=== PATIENT | male | born 1940 | race Two or more races ===

== ENCOUNTER 2018-02-05 16:12 | Inpatient (IN) | payer MEDICARE, MEDICAID ==
[2018-02-05] VITALS (7 sets, daily range): BP systolic 90–145; BP diastolic 51–94
[~2018-02-05] VITALS: Ht 177.8 cm; Wt 77.1 kg
[2018-02-05] MEDS ORDERED: Sodium Chloride 500ML 500 ML IV ONE (16:34)
[2018-02-05] MEDS ORDERED: ASPIRIN EC81 MG ORAL (17:08)
[2018-02-05] MEDS ORDERED: ATORVASTATIN CA40 MG ORAL (17:08)
[2018-02-05] MEDS ORDERED: NITROSTAT0.4 M2 SL (17:08)
[2018-02-05] MEDS ORDERED: BRILINTA90 MG PO (17:08)
[2018-02-05] MEDS ORDERED: METOPROLOL SUCC25 MG ORAL (17:08)
[2018-02-05 17:16] LABS: BASOPHILS % (AUTO) 1.4 % (0.0-2.0); EOSINOPHILS % (AUTO) 1.6 % (0.0-3.0); HEMATOCRIT 43.4 % (42.0-52.0); HEMOGLOBIN 15.4 G/DL (14.2-18.0); LYMPHOCYTES % (AUTO) 28.5 % (20.0-45.0); MEAN CORPUSCULAR VOLUME 97 FL (80-99); MONOCYTES % (AUTO) 10.2 % (1.0-10.0); NEUTROPHILS % (AUTO) 58.2 % (45.0-75.0); PLATELET COUNT 143 K/UL (150-450); RED BLOOD COUNT 4.46 M/UL (4.70-6.10); RED CELL DISTRIBUTION WIDTH 12.1 % (11.6-14.8); WHITE BLOOD COUNT 7.8 K/UL (4.8-10.8)
--- NOTE | 2018-02-05 17:45 | Emergency Room Report ---
History of Present Illness General Chief Complaint: Chest Pain Source: EMS Present Illness HPI 78-year-old male presents ED for evaluation. Patient coming from cardiology office with rapid heart rate and chest pain. Patient was scheduled for stress test and prior to stress test patient developed rapid heart rate. Heart rate in the 140s to 170s. And A. fib. Also complaining of chest pain, 8 out of 10, pressure, nonradiating. Patient was given 3 sprays of nitroglycerin and aspirin prior to arrival. Patient states chest pain has resolved. Denies shortness of breath. History of A. fib. Lump Machine Operator is Dr Pratik Gabriel. No other aggravating relieving factors. Denies any other associated symptoms Allergies: Coded Allergies: No Known Allergies (Unverified , 02/05/18) Patient History Past Medical History: HTN, [place] Past Surgical History: none Pertinent Family History: none Social History: Denies: smoking, alcohol use, drug use Immunizations: UTD Reviewed Nursing Documentation: PMH: Agreed; PSxH: Agreed Nursing Documentation-PMH Past Medical History: No History, Except For Hx Cardiac Problems: Yes - [place] Hx Hypertension: Yes Review of Systems All Other Systems: negative except mentioned in HPI Physical Exam Vital Signs Date Time Temp Pulse Resp B/P (MAP) Pulse Ox O2 Delivery O2 Flow Rate FiO2 02/05/18 16:02 123 20 114/80 98 Room Air 02/05/18 16:27 98.2 98.2 Sp02 EP Interpretation: reviewed, normal General Appearance: no apparent distress, alert, GCS 15, non-toxic Head: normocephalic, atraumatic Eyes: bilateral eye normal inspection, bilateral eye PERRL ENT: hearing grossly normal, normal pharynx, no angioedema, normal voice Neck: full range of motion, supple/symm/no masses Respiratory: chest non-tender, lungs clear, normal breath sounds, speaking full sentences Cardiovascular #1: regular rate, rhythm, no edema Cardiovascular #2: 2+ carotid (R), 2+ carotid (L), 2+ radial (R), 2+ radial (L) , 2+ dorsalis pedis (R), 2+ dorsalis pedis (L) Gastrointestinal: normal bowel sounds, non tender, soft, non-distended, no guarding, no rebound Rectal: deferred Genitourinary: normal inspection, no CVA tenderness Musculoskeletal: back normal, gait/station normal, normal range of motion, non- tender Neurologic: alert, oriented x3, responsive, motor strength/tone normal, sensory intact, speech normal Psychiatric: judgement/insight normal, memory normal, mood/affect normal, no suicidal/homicidal ideation Reflexes: 3+ bicep (R), 3+ bicep (L), 3+ tricep (R), 3+ tricep (L), 3+ knee (R) , 3+ knee (L) Skin: normal color, no rash, warm/dry, well hydrated Lymphatic: no adenopathy Medical Decision Making Diagnostic Impression: Primary Impression: ACS (acute coronary syndrome) Additional Impression: Atrial fibrillation with rapid ventricular response ER Course Hospital Course 78-year-old male presents ED with chest pain, rapid heart rate in the 140s just prior to the stress test today Differential diagnoses include: NH/unstable angina, contusion, muscle strain, PTX, rib fracture Clinical course Patient placed on stretcher. on cardiac rehabilitation program director. After initial history and physical I ordered labs, EKG, chest x-ray labs reviewed- no leukocytosis, hemoglobin/hematocrit stable, electrolytes okay , troponins negative EKGsinus tachycardia no acute ischemic changes interpreted by me Chest x-ray- cardiomegaly Rhythm strip per EMS shows A. fib with rapid ventricular response to the 160s and 170s. Symptoms responded to nitroglycerin 3 and aspirin. Given presentation and risk factors patient should be admitted Discussed case with integrity analyst Dr. Pratik Gabriel who sent the patient Case discussed with and he agreed to accept the patient to his service for further care and support I. I feel this is a highly complex case requiring extensive working including EKG/Rhythm strip, Xray/CT/US, Blood/urine lab work, repeat exams while in ED, and administration of strong opiates/narcotics for pain control, admission to hospital or close patient follow up. Diagnosis - ACS, afib with RVR admitted to telemetry in serious condition Labs Test 02/05/18 16:57 White Blood Count 7.8 K/UL (4.8-10.8) Red Blood Count 4.46 M/UL (4.70-6.10) Hemoglobin 15.4 G/DL (14.2-18.0) Hematocrit 43.4 % (42.0-52.0) Mean Corpuscular Volume 97 FL (80-99) Mean Corpuscular Hemoglobin 34.6 PG (27.0-31.0) Mean Corpuscular Hemoglobin Concent 35.6 G/DL (32.0-36.0) Red Cell Distribution Width 12.1 % (11.6-14.8) Platelet Count 143 K/UL (150-450) Mean Platelet Volume 9.1 FL (6.5-10.1) Neutrophils (%) (Auto) 58.2 % (45.0-75.0) Lymphocytes (%) (Auto) 28.5 % (20.0-45.0) Monocytes (%) (Auto) 10.2 % (1.0-10.0) Eosinophils (%) (Auto) 1.6 % (0.0-3.0) Basophils (%) (Auto) 1.4 % (0.0-2.0) Prothrombin Time 10.9 SEC (9.30-11.50) Prothromb Time International Ratio 1.0 (0.9-1.1) Activated Partial Thromboplast Time 27 SEC (23-33) Sodium Level 140 MMOL/L (136-145) Potassium Level 4.2 MMOL/L (3.5-5.1) Chloride Level 107 MMOL/L (98-107) Carbon Dioxide Level 21 MMOL/L (21-32) Anion Gap 12 mmol/L (5-15) Blood Urea Nitrogen 11 mg/dL (7-18) Creatinine 0.9 MG/DL (0.55-1.30) Estimat Glomerular Filtration Rate mL/min (>60) Glucose Level 105 MG/DL (74-106) Calcium Level 8.6 MG/DL (8.5-10.1) Total Bilirubin 0.8 MG/DL (0.2-1.0) Aspartate Amino Transf (AST/SGOT) 32 U/L (15-37) Alanine Aminotransferase (ALT/SGPT) 31 U/L (12-78) Alkaline Phosphatase 55 U/L (46-116) Total Creatine Kinase 212 U/L (26-308) Creatine Kinase MB 2.0 NG/ML (0.0-3.6) Creatine Kinase MB Relative Index 0.9 Troponin I 0.000 ng/mL (0.000-0.056) Pro-B-Type Natriuretic Peptide 171 pg/mL (0-125) Total Protein 6.5 G/DL (6.4-8.2) Albumin 3.4 G/DL (3.4-5.0) Globulin 3.1 g/dL Albumin/Globulin Ratio 1.1 (1.0-2.7) EKG Diagnostic Results Rate: tachycardiac Rhythm: NSR ST Segments: no acute changes ASA given to the pt in ED: No - given by ems Rhythm Strip Diag. Results EP Interpretation: yes Rhythm: NSR, no PVC's, no ectopy Chest X-Ray Diagnostic Results Chest X-Ray Diagnostic Results : Chest X-Ray Ordered: Yes # of Views/Limited/Complete: 1 View Indication: Chest Pain EP Interpretation: Yes Interpretation: no consolidation, no pneumothorax, other - cardiomegaly Impression: Other - cardiomegaly Electronically Signed by: Electronically signed by Jacob Benitez MD Last Vital Signs Date Time Temp Pulse Resp B/P (MAP) Pulse Ox O2 Delivery O2 Flow Rate FiO2 02/05/18 16:27 97 17 Room Air 02/05/18 16:27 98.2 114/80 98 98.2 Status: improved Disposition: ADMITTED INPATIENT Condition: Serious Jacob Benitez MD February 05, 2018 17:45
[2018-02-05 18:18] LABS: ALANINE AMINOTRANSFERASE 31 U/L (12-78); ALBUMIN 3.4 G/DL (3.4-5.0); ALBUMIN/GLOBULIN RATIO 1.1 (1.0-2.7); ALKALINE PHOSPHATASE 55 U/L (46-116); ANION GAP 12 mmol/L (5-15); ASPARTATE AMINO TRANSFERASE 32 U/L (15-37); BILIRUBIN,TOTAL 0.8 MG/DL (0.2-1.0); BLOOD UREA NITROGEN 11 mg/dL (7-18); CALCIUM 8.6 MG/DL (8.5-10.1); CARBON DIOXIDE 21 MMOL/L (21-32); CHLORIDE 107 MMOL/L (98-107); CREATINE KINASE 212 U/L (26-308); CREATININE 0.9 MG/DL (0.55-1.30); POTASSIUM 4.2 MMOL/L (3.5-5.1); SODIUM 140 MMOL/L (136-145)
[2018-02-05] MEDS ORDERED: Albuterol/Ipratropium 3ml neb HHN PRN (19:46)
[2018-02-05] MEDS ORDERED: Nitroglycerin Subl 0.4mg tab SL PRN (19:46)
[2018-02-05] MEDS ORDERED: Miralax 17gm pkt ORAL PRN (19:48)
[2018-02-05] MEDS ORDERED: dilTIAZem HCl 25mg/5ml Inj IV PRN (19:49)
[2018-02-05] MEDS ORDERED: Ketorolac 30mg Inj IV PRN (19:49)
[2018-02-05] MEDS ORDERED: Enalaprilat 2.5mg/2ml Inj IV PRN (19:49)
[2018-02-05] MEDS: Heparin 5000 units/ml inj SUBQ SCH (21:00)
[2018-02-05] MEDS: Atorvastatin 20mg tab ORAL SCH (22:14)
[2018-02-06] VITALS: BP 102/64
[2018-02-06 04:00] VITALS: BP 118/54
[2018-02-06 07:12] LABS: BASOPHILS % (AUTO) 1.3 % (0.0-2.0); EOSINOPHILS % (AUTO) 2.5 % (0.0-3.0); HEMOGLOBIN 15.7 G/DL (14.2-18.0); LYMPHOCYTES % (AUTO) 34.2 % (20.0-45.0); MEAN CORPUSCULAR VOLUME 97 FL (80-99); MONOCYTES % (AUTO) 10.8 % (1.0-10.0); NEUTROPHILS % (AUTO) 51.2 % (45.0-75.0); PLATELET COUNT 140 K/UL (150-450); RED BLOOD COUNT 4.43 M/UL (4.70-6.10); RED CELL DISTRIBUTION WIDTH 12.2 % (11.6-14.8); WHITE BLOOD COUNT 6.2 K/UL (4.8-10.8)
[2018-02-06 07:48] LABS: CHOLESTEROL 148 MG/DL (< 200); HDL CHOLESTEROL 43 MG/DL (40-60); TRIGLYCERIDES 79 MG/DL (30-150)
[2018-02-06 08:00] VITALS: BP 122/79
[2018-02-06] MEDS: Heparin 5000 units/ml inj SUBQ SCH ×2 (09:00→21:00)
[2018-02-06] MEDS ORDERED: Metoprolol Succinate XL 25mg tab ORAL SCH (09:00)
[2018-02-06] MEDS: Aspirin Baby 81mg ORAL SCH (09:40)
--- NOTE | 2018-02-06 11:18 | Diagnostic Imaging Report ---
Indication: Chest pain Technique: XRAY Chest 1v Comparison: None Findings: Limited exam with low lung volumes. Probable cardiomegaly and mild pulmonary vascular congestion. There is streaky opacities at the left base likely related to subsegmental atelectasis. No pleural effusion or pneumothorax. No definite acute osseous abnormality is seen. Impression: Question cardiomegaly and mild pulmonary vascular congestion, possibly exaggerated due to low lung volumes. Streaky left basilar opacities thought to be related to subsegmental atelectasis. Correlate clinically to exclude the possibility of developing infiltrate. Study obtained via the emergency department however patient admitted to the hospital at time of dictation of the final report.
[2018-02-06 12:00] VITALS: BP 156/87
--- NOTE | 2018-02-06 12:06 | Consultation ---
History of Present Illness General Date patient seen: February 06, 2018 Chief Complaint: Chest Pain Present Illness HPI 78-year-old gentleman with history of hypertension and coronary artery disease as well history of anxiety and cognitive impairment came in for medical stabilization. the pt is having episodes of agitation and anxiety Allergies: Coded Allergies: No Known Allergies (Unverified , 02/05/18) Medication History Scheduled Aspirin Ec* (Aspirin Ec*), 81 MG ORAL DAILY, (Reported) Atorvastatin Calcium* (Atorvastatin Calcium*), 40 MG ORAL BEDTIME, (Reported) Metoprolol Succinate* (Metoprolol Succinate*), 25 MG ORAL DAILY, (Reported) Ticagrelor* (Brilinta*), 90 MG PO BID, (Reported) Miscellaneous Medications Nitroglycerin (Nitrostat), 0.4 MG SL, (Reported) Patient History Limited by: medical condition History Provided By: Patient Healthcare decision maker Resuscitation status Full Code Advanced Directive on File Past Medical/Surgical History Past Medical/Surgical History: (1) ACS (acute coronary syndrome) (2) CAD (coronary artery disease) (3) Hypertension (4) Cerebral vascular disease Review of Systems Psychiatric: Reports: prior hx, anxiety, emotional problems Physical Exam General Appearance: no apparent distress, alert Neurologic: oriented x 3, responsive, depressed affect Last 24 Hour Vital Signs Date Time Temp Pulse Resp B/P (MAP) Pulse Ox O2 Delivery O2 Flow Rate FiO2 02/06/18 09:40 69 122/79 02/06/18 08:00 97.1 69 20 122/79 98 Room Air 97.1 02/06/18 04:00 98.1 67 20 118/54 96 Room Air 98.1 02/06/18 04:00 65 02/06/18 00:00 97.0 68 20 102/64 95 Room Air 97.0 02/06/18 00:00 66 02/05/18 20:40 98.0 71 20 117/71 96 Room Air 98.0 02/05/18 20:40 78 02/05/18 20:38 97.7 74 20 144/88 96 Room Air 97.7 02/05/18 20:20 97.7 72 20 145/94 96 Room Air 97.7 02/05/18 20:00 97.7 72 20 145/94 96 Room Air 97.7 02/05/18 19:17 97.7 72 20 145/94 96 Room Air 97.7 02/05/18 18:33 98.4 80 26 90/51 96 Room Air 98.4 02/05/18 18:31 98.6 70 24 133/87 97 Room Air 98.6 02/05/18 16:27 97 17 Room Air 02/05/18 16:27 98.2 97 20 114/80 98 Room Air 98.2 02/05/18 16:02 123 20 114/80 98 Room Air Intake and Output 02/05/18 02/06/18 19:00 07:00 Intake Total 100 ml Output Total 0 ml Balance 0 ml 100 ml Intake Oral 100 ml Output Urine Total 0 ml # Voids 2 Laboratory Tests Test 02/05/18 16:57 02/05/18 20:30 02/06/18 06:05 White Blood Count 7.8 K/UL (4.8-10.8) 6.2 K/UL (4.8-10.8) Red Blood Count 4.46 M/UL (4.70-6.10) L 4.43 M/UL (4.70-6.10) L Hemoglobin 15.4 G/DL (14.2-18.0) 15.7 G/DL (14.2-18.0) Hematocrit 43.4 % (42.0-52.0) 43.0 % (42.0-52.0) Mean Corpuscular Volume 97 FL (80-99) 97 FL (80-99) Mean Corpuscular Hemoglobin 34.6 PG (27.0-31.0) H 35.4 PG (27.0-31.0) H Mean Corpuscular Hemoglobin Concent 35.6 G/DL (32.0-36.0) 36.5 G/DL (32.0-36.0) H Red Cell Distribution Width 12.1 % (11.6-14.8) 12.2 % (11.6-14.8) Platelet Count 143 K/UL (150-450) L 140 K/UL (150-450) L Mean Platelet Volume 9.1 FL (6.5-10.1) 9.4 FL (6.5-10.1) Neutrophils (%) (Auto) 58.2 % (45.0-75.0) 51.2 % (45.0-75.0) Lymphocytes (%) (Auto) 28.5 % (20.0-45.0) 34.2 % (20.0-45.0) Monocytes (%) (Auto) 10.2 % (1.0-10.0) H 10.8 % (1.0-10.0) H Eosinophils (%) (Auto) 1.6 % (0.0-3.0) 2.5 % (0.0-3.0) Basophils (%) (Auto) 1.4 % (0.0-2.0) 1.3 % (0.0-2.0) Prothrombin Time 10.9 SEC (9.30-11.50) 10.9 SEC (9.30-11.50) Prothromb Time International Ratio 1.0 (0.9-1.1) 1.0 (0.9-1.1) Activated Partial Thromboplast Time 27 SEC (23-33) 28 SEC (23-33) Sodium Level 140 MMOL/L (136-145) Potassium Level 4.2 MMOL/L (3.5-5.1) Chloride Level 107 MMOL/L (98-107) Carbon Dioxide Level 21 MMOL/L (21-32) Anion Gap 12 mmol/L (5-15) Blood Urea Nitrogen 11 mg/dL (7-18) Creatinine 0.9 MG/DL (0.55-1.30) Estimat Glomerular Filtration Rate mL/min (>60) Glucose Level 105 MG/DL (74-106) Calcium Level 8.6 MG/DL (8.5-10.1) Total Bilirubin 0.8 MG/DL (0.2-1.0) Aspartate Amino Transf (AST/SGOT) 32 U/L (15-37) Alanine Aminotransferase (ALT/SGPT) 31 U/L (12-78) Alkaline Phosphatase 55 U/L (46-116) Total Creatine Kinase 212 U/L (26-308) Creatine Kinase MB 2.0 NG/ML (0.0-3.6) Creatine Kinase MB Relative Index 0.9 Troponin I 0.000 ng/mL (0.000-0.056) 0.000 ng/mL (0.000-0.056) 0.000 ng/mL (0.000-0.056) Pro-B-Type Natriuretic Peptide 171 pg/mL (0-125) H Total Protein 6.5 G/DL (6.4-8.2) Albumin 3.4 G/DL (3.4-5.0) Globulin 3.1 g/dL Albumin/Globulin Ratio 1.1 (1.0-2.7) C-Reactive Protein, Quantitative < 0.4 mg/dL (0.00-0.90) Triglycerides Level 79 MG/DL (30-150) Cholesterol Level 148 MG/DL (< 200) LDL Cholesterol 110 mg/dL (<100) H HDL Cholesterol 43 MG/DL (40-60) Cholesterol/HDL Ratio 3.4 (3.3-4.4) Thyroid Stimulating Hormone (TSH) 3.333 uiU/mL (0.358-3.740) Height (Feet): 5 Height (Inches): 10.00 Weight (Pounds): 170 Medications Current Medications Medications (Trade) Dose Ordered Sig/Katie Route PRN Reason Start Time Stop Time Status Last Admin Dose Admin Acetaminophen (Tylenol) 650 mg Q4H PRN ORAL FEVER (>100.3) 02/05/18 19:47 03/07/18 19:46 Albuterol/ Ipratropium (Albuterol/ Ipratropium) 3 ml EVERY 4 HOURS PRN HHN Shortness of Breath 02/05/18 19:46 02/10/18 19:45 Aspirin (ASA) 162 mg DAILY ORAL 02/06/18 09:00 03/08/18 08:59 02/06/18 09:40 Atorvastatin Calcium (Lipitor) 40 mg BEDTIME ORAL 02/05/18 21:00 03/07/18 20:59 02/05/18 22:14 Diltiazem HCl (Cardizem) 10 mg EVERY HOUR PRN IV heart rate more than 120, 02/05/18 19:49 03/07/18 19:48 Enalaprilat (Vasotec) 2.5 mg EVERY 6 HOURS PRN IV sbp more than 160 02/05/18 19:49 03/07/18 19:48 Heparin Sodium (Porcine) (Heparin 5000 units/ml) 5,000 units EVERY 12 HOURS SUBQ 02/05/18 21:00 03/07/18 20:59 Ketorolac Tromethamine (Toradol 30mg) 30 mg Q6HR PRN IV moderate pain ( 4-6) 02/05/18 19:49 02/10/18 19:48 Metoprolol Succinate (Toprol XL) 25 mg DAILY ORAL 02/06/18 09:00 03/08/18 08:59 02/06/18 09:40 Nitroglycerin (Ntg) 0.4 mg STAT PRN SL Prn Chest Pain 02/05/18 19:46 03/07/18 19:45 Ondansetron HCl (Zofran) 4 mg Q6H PRN IVP Nausea & Vomiting 02/05/18 19:48 03/07/18 19:47 Polyethylene Glycol (Miralax) 17 gm DAILYPRN PRN ORAL Constipation 02/05/18 19:48 03/07/18 19:47 Temazepam (Restoril) 15 mg HSPRN PRN ORAL Insomnia 02/05/18 21:00 02/12/18 20:59 Assessment/Plan Status: stable, progressing Assessment/Plan Anxiety d/o cognitive impairment Yasmani Flaherty M.D. February 06, 2018 12:06
[2018-02-06] MEDS ORDERED: LORazepam 1mg tab ORAL PRN (12:15)
--- NOTE | 2018-02-06 13:03 | Consultation ---
History of Present Illness General Date patient seen: February 06, 2018 Chief Complaint: Chest Pain Referring physician: Dr. Sanchez Present Illness HPI 78-year-old male with PMHx of HTN, CAD presents ED for evaluation of rapid heart rate and chest pain. Patient was scheduled for stress test and prior to stress test patient developed rapid heart rate. Heart rate in the 140s to 170s. And A. fib. Also complaining of chest pain, 8 out of 10, pressure, nonradiating. Patient was given 3 sprays of nitroglycerin and aspirin prior to arrival. Patient states chest pain has resolved. His heart rate on arrival to ER was 127, he converted to sinus in ER. He is admitted to telemetry to rule out ACS. Allergies: Coded Allergies: No Known Allergies (Unverified , 02/05/18) Medication History Scheduled Aspirin Ec* (Aspirin Ec*), 81 MG ORAL DAILY, (Reported) Atorvastatin Calcium* (Atorvastatin Calcium*), 40 MG ORAL BEDTIME, (Reported) Metoprolol Succinate* (Metoprolol Succinate*), 25 MG ORAL DAILY, (Reported) Ticagrelor* (Brilinta*), 90 MG PO BID, (Reported) Miscellaneous Medications Nitroglycerin (Nitrostat), 0.4 MG SL, (Reported) Patient History Healthcare decision maker N Resuscitation status Full Code Advanced Directive on File Past Medical/Surgical History Past Medical/Surgical History: (1) CAD (coronary artery disease) (2) Hypertension Review of Systems All Other Systems: negative except mentioned in HPI Physical Exam General Appearance: WD/WN Lines, tubes and drains: peripheral HEENT: normocephalic, atraumatic Neck: non-tender, normal alignment Respiratory/Chest: chest wall non-tender, lungs clear Breasts: no masses Cardiovascular/Chest: normal peripheral pulses Abdomen: normal bowel sounds, non tender Genitourinary/Rectal: normal genital exam Extremities: normal range of motion Skin Exam: normal pigmentation Neurologic: 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 normal Last 24 Hour Vital Signs Date Time Temp Pulse Resp B/P (MAP) Pulse Ox O2 Delivery O2 Flow Rate FiO2 02/06/18 09:40 69 122/79 02/06/18 09:00 78 02/06/18 08:00 97.1 69 20 122/79 98 Room Air 97.1 02/06/18 04:00 98.1 67 20 118/54 96 Room Air 98.1 02/06/18 04:00 65 02/06/18 00:00 97.0 68 20 102/64 95 Room Air 97.0 02/06/18 00:00 66 02/05/18 20:40 98.0 71 20 117/71 96 Room Air 98.0 02/05/18 20:40 78 02/05/18 20:38 97.7 74 20 144/88 96 Room Air 97.7 02/05/18 20:20 97.7 72 20 145/94 96 Room Air 97.7 02/05/18 20:00 97.7 72 20 145/94 96 Room Air 97.7 02/05/18 19:17 97.7 72 20 145/94 96 Room Air 97.7 02/05/18 18:33 98.4 80 26 90/51 96 Room Air 98.4 02/05/18 18:31 98.6 70 24 133/87 97 Room Air 98.6 02/05/18 16:27 97 17 Room Air 02/05/18 16:27 98.2 97 20 114/80 98 Room Air 98.2 02/05/18 16:02 123 20 114/80 98 Room Air Intake and Output 02/05/18 02/06/18 19:00 07:00 Intake Total 100 ml Output Total 0 ml Balance 0 ml 100 ml Intake Oral 100 ml Output Urine Total 0 ml # Voids 2 Laboratory Tests Test 02/05/18 16:57 02/05/18 20:30 02/06/18 06:05 White Blood Count 7.8 K/UL (4.8-10.8) 6.2 K/UL (4.8-10.8) Red Blood Count 4.46 M/UL (4.70-6.10) L 4.43 M/UL (4.70-6.10) L Hemoglobin 15.4 G/DL (14.2-18.0) 15.7 G/DL (14.2-18.0) Hematocrit 43.4 % (42.0-52.0) 43.0 % (42.0-52.0) Mean Corpuscular Volume 97 FL (80-99) 97 FL (80-99) Mean Corpuscular Hemoglobin 34.6 PG (27.0-31.0) H 35.4 PG (27.0-31.0) H Mean Corpuscular Hemoglobin Concent 35.6 G/DL (32.0-36.0) 36.5 G/DL (32.0-36.0) H Red Cell Distribution Width 12.1 % (11.6-14.8) 12.2 % (11.6-14.8) Platelet Count 143 K/UL (150-450) L 140 K/UL (150-450) L Mean Platelet Volume 9.1 FL (6.5-10.1) 9.4 FL (6.5-10.1) Neutrophils (%) (Auto) 58.2 % (45.0-75.0) 51.2 % (45.0-75.0) Lymphocytes (%) (Auto) 28.5 % (20.0-45.0) 34.2 % (20.0-45.0) Monocytes (%) (Auto) 10.2 % (1.0-10.0) H 10.8 % (1.0-10.0) H Eosinophils (%) (Auto) 1.6 % (0.0-3.0) 2.5 % (0.0-3.0) Basophils (%) (Auto) 1.4 % (0.0-2.0) 1.3 % (0.0-2.0) Prothrombin Time 10.9 SEC (9.30-11.50) 10.9 SEC (9.30-11.50) Prothromb Time International Ratio 1.0 (0.9-1.1) 1.0 (0.9-1.1) Activated Partial Thromboplast Time 27 SEC (23-33) 28 SEC (23-33) Sodium Level 140 MMOL/L (136-145) Potassium Level 4.2 MMOL/L (3.5-5.1) Chloride Level 107 MMOL/L (98-107) Carbon Dioxide Level 21 MMOL/L (21-32) Anion Gap 12 mmol/L (5-15) Blood Urea Nitrogen 11 mg/dL (7-18) Creatinine 0.9 MG/DL (0.55-1.30) Estimat Glomerular Filtration Rate mL/min (>60) Glucose Level 105 MG/DL (74-106) Calcium Level 8.6 MG/DL (8.5-10.1) Total Bilirubin 0.8 MG/DL (0.2-1.0) Aspartate Amino Transf (AST/SGOT) 32 U/L (15-37) Alanine Aminotransferase (ALT/SGPT) 31 U/L (12-78) Alkaline Phosphatase 55 U/L (46-116) Total Creatine Kinase 212 U/L (26-308) Creatine Kinase MB 2.0 NG/ML (0.0-3.6) Creatine Kinase MB Relative Index 0.9 Troponin I 0.000 ng/mL (0.000-0.056) 0.000 ng/mL (0.000-0.056) 0.000 ng/mL (0.000-0.056) Pro-B-Type Natriuretic Peptide 171 pg/mL (0-125) H Total Protein 6.5 G/DL (6.4-8.2) Albumin 3.4 G/DL (3.4-5.0) Globulin 3.1 g/dL Albumin/Globulin Ratio 1.1 (1.0-2.7) C-Reactive Protein, Quantitative < 0.4 mg/dL (0.00-0.90) Triglycerides Level 79 MG/DL (30-150) Cholesterol Level 148 MG/DL (< 200) LDL Cholesterol 110 mg/dL (<100) H HDL Cholesterol 43 MG/DL (40-60) Cholesterol/HDL Ratio 3.4 (3.3-4.4) Thyroid Stimulating Hormone (TSH) 3.333 uiU/mL (0.358-3.740) Height (Feet): 5 Height (Inches): 10.00 Weight (Pounds): 170 Medications Current Medications Medications (Trade) Dose Ordered Sig/Katie Route PRN Reason Start Time Stop Time Status Last Admin Dose Admin Acetaminophen (Tylenol) 650 mg Q4H PRN ORAL FEVER (>100.3) 02/05/18 19:47 03/07/18 19:46 Albuterol/ Ipratropium (Albuterol/ Ipratropium) 3 ml EVERY 4 HOURS PRN HHN Shortness of Breath 02/05/18 19:46 02/10/18 19:45 Aspirin (ASA) 162 mg DAILY ORAL 02/06/18 09:00 03/08/18 08:59 02/06/18 09:40 Atorvastatin Calcium (Lipitor) 40 mg BEDTIME ORAL 02/05/18 21:00 03/07/18 20:59 02/05/18 22:14 Diltiazem HCl (Cardizem) 10 mg EVERY HOUR PRN IV heart rate more than 120, 02/05/18 19:49 03/07/18 19:48 Enalaprilat (Vasotec) 2.5 mg EVERY 6 HOURS PRN IV sbp more than 160 02/05/18 19:49 03/07/18 19:48 Heparin Sodium (Porcine) (Heparin 5000 units/ml) 5,000 units EVERY 12 HOURS SUBQ 02/05/18 21:00 03/07/18 20:59 Ketorolac Tromethamine (Toradol 30mg) 30 mg Q6HR PRN IV moderate pain ( 4-6) 02/05/18 19:49 02/10/18 19:48 Lorazepam (Ativan) 1 mg Q6H PRN ORAL For Anxiety 02/06/18 12:15 02/13/18 12:14 Metoprolol Succinate (Toprol XL) 25 mg DAILY ORAL 02/06/18 09:00 03/08/18 08:59 02/06/18 09:40 Nitroglycerin (Ntg) 0.4 mg STAT PRN SL Prn Chest Pain 02/05/18 19:46 03/07/18 19:45 Ondansetron HCl (Zofran) 4 mg Q6H PRN IVP Nausea & Vomiting 02/05/18 19:48 03/07/18 19:47 Polyethylene Glycol (Miralax) 17 gm DAILYPRN PRN ORAL Constipation 02/05/18 19:48 03/07/18 19:47 Temazepam (Restoril) 15 mg HSPRN PRN ORAL Insomnia 02/05/18 21:00 02/12/18 20:59 Assessment/Plan Problem List: (1) Atrial fibrillation with rapid ventricular response ICD Codes: I48.91 - Unspecified atrial fibrillation SNOMED: 069142830524851 (2) ACS (acute coronary syndrome) ICD Codes: I24.9 - Acute ischemic heart disease, unspecified SNOMED: 162266994 (3) CAD (coronary artery disease) ICD Codes: I25.10 - Atherosclerotic heart disease of [place] coronary artery without angina pectoris SNOMED: 72943718 (4) Hypertension ICD Codes: I10 - Essential (primary) hypertension SNOMED: 13544498 Assessment/Plan telemetry monitoring serial ekg and troponin Echo cardiology evaluation symptomatic treatment watch BP Niranjan Noriega MD February 06, 2018 13:03
--- NOTE | 2018-02-06 14:30 | Cardiology Report ---
APPROVED REPORT EXAM: Two-dimensional and M-mode echocardiogram with Doppler and color Doppler. INDICATION LV function M-Mode DIMENSIONS IVSd1.4 (0.7-1.1cm)Left Atrium (MM)4.1 (1.6-4.0cm) LVDd4.3 (3.5-5.6cm)Aortic Root3.6 (2.0-3.7cm) PWd1.2 (0.7-1.1cm)Aortic Cusp Exc..2 (1.5-2.0cm) LVDs2.7 (2.5-4.0cm) PWs1.9 cm Normal left ventricular chamber size, systolic function and wall motion. Left ventricular ejection fraction estimated to be 60 %. Mild left ventricular hypertrophy. No evidence of pericardial effusion. All other cardiac chamber sizes are within normal limits. Focal aortic valve sclerosis with adequate cusp excursion. Thickened mitral valve leaflets with normal excursion. Mitral annulus and aortic root calcification. Pulmonic valve not well visualized. Normal tricuspid valve structure. IVC at normal size with physiologic collapse. A color flow and spectral Doppler study was performed and revealed: Mild aortic regurgitation. Mild mitral regurgitation. Mitral diastolic velocities suggest reduced left ventricular relaxation c/w mild LV diastolic dysfunction (Grade I ). Mild tricuspid regurgitation. Tricuspid systolic velocities suggests peak right ventricular systolic pressure of 56 mmHg, consistent with moderate pulmonary hypertension. Pulmonic regurgitation present.
--- NOTE | 2018-02-06 14:47 | History & Physical ---
History and Physical History & Physicial Daquan Monahan MD February 06, 2018 14:47
--- NOTE | 2018-02-06 14:53 | Cardiac Electrophysiology PN ---
Subjective Subjective [id number] Objective Last 24 Hour Vital Signs Date Time Temp Pulse Resp B/P (MAP) Pulse Ox O2 Delivery O2 Flow Rate FiO2 02/06/18 12:00 97.2 52 20 156/87 98 Room Air 97.2 02/06/18 12:00 57 02/06/18 09:40 69 122/79 02/06/18 09:00 78 02/06/18 08:00 97.1 69 20 122/79 98 Room Air 97.1 02/06/18 04:00 98.1 67 20 118/54 96 Room Air 98.1 02/06/18 04:00 65 02/06/18 00:00 97.0 68 20 102/64 95 Room Air 97.0 02/06/18 00:00 66 02/05/18 20:40 98.0 71 20 117/71 96 Room Air 98.0 02/05/18 20:40 78 02/05/18 20:38 97.7 74 20 144/88 96 Room Air 97.7 02/05/18 20:20 97.7 72 20 145/94 96 Room Air 97.7 02/05/18 20:00 97.7 72 20 145/94 96 Room Air 97.7 02/05/18 19:17 97.7 72 20 145/94 96 Room Air 97.7 02/05/18 18:33 98.4 80 26 90/51 96 Room Air 98.4 02/05/18 18:31 98.6 70 24 133/87 97 Room Air 98.6 02/05/18 16:27 97 17 Room Air 02/05/18 16:27 98.2 97 20 114/80 98 Room Air 98.2 02/05/18 16:02 123 20 114/80 98 Room Air Intake and Output 02/05/18 02/06/18 19:00 07:00 Intake Total 100 ml Output Total 0 ml Balance 0 ml 100 ml Intake Oral 100 ml Output Urine Total 0 ml # Voids 2 Laboratory Tests Test 02/05/18 16:57 02/05/18 20:30 02/06/18 06:05 White Blood Count 7.8 K/UL (4.8-10.8) 6.2 K/UL (4.8-10.8) Red Blood Count 4.46 M/UL (4.70-6.10) L 4.43 M/UL (4.70-6.10) L Hemoglobin 15.4 G/DL (14.2-18.0) 15.7 G/DL (14.2-18.0) Hematocrit 43.4 % (42.0-52.0) 43.0 % (42.0-52.0) Mean Corpuscular Volume 97 FL (80-99) 97 FL (80-99) Mean Corpuscular Hemoglobin 34.6 PG (27.0-31.0) H 35.4 PG (27.0-31.0) H Mean Corpuscular Hemoglobin Concent 35.6 G/DL (32.0-36.0) 36.5 G/DL (32.0-36.0) H Red Cell Distribution Width 12.1 % (11.6-14.8) 12.2 % (11.6-14.8) Platelet Count 143 K/UL (150-450) L 140 K/UL (150-450) L Mean Platelet Volume 9.1 FL (6.5-10.1) 9.4 FL (6.5-10.1) Neutrophils (%) (Auto) 58.2 % (45.0-75.0) 51.2 % (45.0-75.0) Lymphocytes (%) (Auto) 28.5 % (20.0-45.0) 34.2 % (20.0-45.0) Monocytes (%) (Auto) 10.2 % (1.0-10.0) H 10.8 % (1.0-10.0) H Eosinophils (%) (Auto) 1.6 % (0.0-3.0) 2.5 % (0.0-3.0) Basophils (%) (Auto) 1.4 % (0.0-2.0) 1.3 % (0.0-2.0) Prothrombin Time 10.9 SEC (9.30-11.50) 10.9 SEC (9.30-11.50) Prothromb Time International Ratio 1.0 (0.9-1.1) 1.0 (0.9-1.1) Activated Partial Thromboplast Time 27 SEC (23-33) 28 SEC (23-33) Sodium Level 140 MMOL/L (136-145) Potassium Level 4.2 MMOL/L (3.5-5.1) Chloride Level 107 MMOL/L (98-107) Carbon Dioxide Level 21 MMOL/L (21-32) Anion Gap 12 mmol/L (5-15) Blood Urea Nitrogen 11 mg/dL (7-18) Creatinine 0.9 MG/DL (0.55-1.30) Estimat Glomerular Filtration Rate mL/min (>60) Glucose Level 105 MG/DL (74-106) Calcium Level 8.6 MG/DL (8.5-10.1) Total Bilirubin 0.8 MG/DL (0.2-1.0) Aspartate Amino Transf (AST/SGOT) 32 U/L (15-37) Alanine Aminotransferase (ALT/SGPT) 31 U/L (12-78) Alkaline Phosphatase 55 U/L (46-116) Total Creatine Kinase 212 U/L (26-308) Creatine Kinase MB 2.0 NG/ML (0.0-3.6) Creatine Kinase MB Relative Index 0.9 Troponin I 0.000 ng/mL (0.000-0.056) 0.000 ng/mL (0.000-0.056) 0.000 ng/mL (0.000-0.056) Pro-B-Type Natriuretic Peptide 171 pg/mL (0-125) H Total Protein 6.5 G/DL (6.4-8.2) Albumin 3.4 G/DL (3.4-5.0) Globulin 3.1 g/dL Albumin/Globulin Ratio 1.1 (1.0-2.7) C-Reactive Protein, Quantitative < 0.4 mg/dL (0.00-0.90) Triglycerides Level 79 MG/DL (30-150) Cholesterol Level 148 MG/DL (< 200) LDL Cholesterol 110 mg/dL (<100) H HDL Cholesterol 43 MG/DL (40-60) Cholesterol/HDL Ratio 3.4 (3.3-4.4) Thyroid Stimulating Hormone (TSH) 3.333 uiU/mL (0.358-3.740) Royce Rapp MD February 06, 2018 14:53
[2018-02-06] MEDS ORDERED: Lexiscan 0.4mg/5ml syringe IV PRN (15:00)
[2018-02-06 16:00] VITALS: BP 109/67
[2018-02-06 20:00] VITALS: BP 114/70
[2018-02-06] MEDS: Atorvastatin 20mg tab ORAL SCH (21:06)
--- NOTE | 2018-02-06 22:00 | History and Physical Report ---
DATE OF ADMISSION: 02/05/2018 CHIEF COMPLAINT: Palpitation. HISTORY OF PRESENT ILLNESS: This is a 78-year-old gentleman with past medical history significant for coronary artery disease status post PTCA with angioplasty done about a year ago, history of CVA, hypertension, prior history right kidney surgery who was presented to the emergency room after it was noted to have a palpitation. The patient was scheduled for the stress test and was noted to have rapid heart rate in the 140 to 170 was noted to be EKG confirmed the patient has atrial fibrillation with rapid ventricular rate and subsequently, the stress test was deferred and the patient was transferred to the hospital. Shortly after initial evaluation in the emergency, the patient was noted to be in chest pain, pressure-like, nonradiating and the patient was given 3 sprays of nitroglycerin and aspirin. Prior to arrival to the emergency room, chest pain was resolved. Heart rate was in the emergency room upon arrival was 127 and it converted to sinus rhythm in the ER and shortly after initial evaluation in the emergency, the patient was admitted to the hospital with atrial fibrillation with rapid ventricular rate as well as chest pain, possible acute coronary syndrome. PAST MEDICAL HISTORY/PAST SURGICAL HISTORY: As above. History of hypertension, CVA, coronary artery disease with stent placement, history of right kidney surgery. MEDICATIONS: At home significant for aspirin, atorvastatin, metoprolol and Brilinta. ALLERGIES: No known drug allergies. SOCIAL HISTORY: No smoking, alcohol, or drugs. FAMILY HISTORY: Noncontributory. REVIEW OF SYSTEMS: Mostly as above. Denies any dysuria, frequency, or hematuria. Denies any hemoptysis or hematochezia. Denies any suicidal or homicidal ideation. The patient's chest pain has been resolved. Denies any loss of consciousness. Denies any double vision. Denies any pedal edema. PHYSICAL EXAMINATION: VITAL SIGNS: Temperature 97.1 degrees, pulse of 69, respirations 20, and blood pressure 122/79. GENERAL: The patient is awake, responsive, in no acute distress. HEAD AND NECK: Pupils are reactive to light. Extraocular movements are intact. Neck was supple. No JVD. LUNGS: With no wheeze, rhonchi or rales. HEART: S1 and S2. Regular rhythm. No gallops. ABDOMEN: Soft, nondistended, and nontender. Positive bowel sounds. EXTREMITIES: No cyanosis, clubbing, or edema. NEUROLOGIC: Cranial nerves II through XII are grossly intact. Motor strength is 5/5 in all extremity. Gait is intact. LABORATORY AND DIAGNOSTIC DATA: On admission, PT of 10, INR 1.0 and PTT of 27. Sodium 140, potassium 4.2, chloride 107, bicarboante 21, BUN 11, creatinine 0.9, glucose is 105. AST of 32 and ALT of 31. First and second troponin 0.00. ProBNP of 171. Cholesterol is 148. WBC of 7.8, hemoglobin 15, hematocrit 43, and platelet is 143. The patient had a chest x-ray shows that the ? cardiomegaly with mild pulmonary vascular congestion, possibility exaggeration due to the low lung volume. left basal opacities thought to be related to subsegmental atelectasis. EKG upon arrival is significant for atrial fibrillation with rapid ventricular rate, ventricular rate of 168 and repeat EKG was confirmed to be sinus tachy with ventricular rate of 117. No ST elevation or T-wave inversion was identified. Echocardiogram was noted to be ejection fraction of 60% with a mild left ventricular hypertrophy. No evidence of the pericardial effusion, normal tricuspid valve structure and mild tricuspid regurgitation. ASSESSMENT: 1. Chest pain, possible acute coronary syndrome. 2. History of coronary artery disease with status post PTCA with stent placement. 3. Atrial fibrillation with rapid ventricular rate, paroxysmal. 4. History of CVA. 5. Hypertension. 6. History of right kidney surgery. PLAN: Admit the patient to telemetry. We will follow up with Dr. Noriega, Pulmonary Critical Care and Dr. Royce Rapp from Cardiology. Monitor laboratory closely. Discussed with the family member at the bedside who has been helping with Khmer translation because of language barrier. Code Status Full Code. DVT prophylaxis. Heparin subcutaneous. Resume home medication and consider discharge home in a day or two. Daquan Monahan M.D. DR: INDIRA JOB#: [id number] CC:
--- NOTE | 2018-02-06 22:30 | Consultation ---
DATE OF CONSULTATION: 02/06/2018 CARDIOLOGY CONSULTATION CONSULTING PHYSICIAN: Royce Rapp M.D. REFERRING PHYSICIAN: Daquan Monahan M.D. REASON FOR CONSULTATION: Atrial fibrillation with rapid ventricular response. HISTORY OF PRESENT ILLNESS: The patient is a 78-year-old gentleman with history of hypertension and coronary artery disease, who was scheduled for a stress test, but started to develop atrial fibrillation with rapid ventricular response, heart rate 170s. The patient was sent to the emergency room after three sprays of nitroglycerin and aspirin. The patient's heart rate was 130s in the emergency room and then converted spontaneously to sinus rhythm. The patient was admitted and Cardiology consultation was obtained for further evaluation and management. REVIEW OF SYSTEMS: Review of Systems was performed and was negative other than what was mentioned in the history of present illness. PAST MEDICAL HISTORY: 1. Hypertension. 2. Coronary artery disease, 01:02__ which is not clear. FAMILY HISTORY: Noncontributory. SOCIAL HISTORY: He lives at home. Does not smoke or drink alcohol. MEDICATIONS: At home include aspirin 81 mg, Brilinta 90 mg b.i.d., Lipitor 40 mg daily, and Toprol-XL 25 mg daily. PHYSICAL EXAMINATION: VITAL SIGNS: Show blood pressure of 155/87, pulse is 62, respirations 20, and temperature 97.2. HEAD AND NECK: No JVD. LUNGS: Clear. CARDIOVASCULAR: Regular S1 and S2 with no gallop or murmur. ABDOMEN: Soft. EXTREMITIES: No pitting edema. LABORATORY AND DIAGNOSTIC DATA: Labs show white count 6.2, hemoglobin 15.7, hematocrit of 43, and platelet count of 140. Sodium of 140, potassium is 4.2, BUN of 11, creatinine 0.9, and glucose of 105. Troponin negative x3. BNP is 171. ASSESSMENT AND PLAN: 1. Atrial fibrillation with rapid ventricular response of new onset. Increase Toprol to 25 mg b.i.d. Since this is newly diagnosed, we will hold off on full anticoagulation, but continue aspirin and Brilinta. If it is not available, we will switch it to Plavix. Echocardiogram has already been ordered, which showed ejection fraction of 60%. If the stress is negative, we will start the patient on flecainide. 2. Hypertension. Increase Toprol-XL to 50 mg daily. 3. History of coronary artery disease without any chest pain currently. Thank you very much, Dr. Monahan, for allowing me to participate in the care of this patient. Please do not hesitate to contact me for any questions regarding my evaluation. Royce Rapp M.D. DR: Glory JOB#: [id number] CC:
[2018-02-07] VITALS: BP 118/61
[2018-02-07 08:00] VITALS: BP 131/72
[2018-02-07] MEDS: Aspirin Baby 81mg ORAL SCH (10:18)
[2018-02-07] MEDS: Metoprolol Succinate XL 50mg tab ORAL SCH (10:19)
[2018-02-07] MEDS: Heparin 5000 units/ml inj SUBQ SCH ×2 (10:20→20:51)
--- NOTE | 2018-02-07 11:00 | Pulmonology Progress Note ---
Assessment/Plan Assessment/Plan ASSESSMENT atrial fibrillation with rapid ventricular response chest pain, r/o acute coronary syndrome HTN CAD with hx of [place] Hypercholesteremia Moderate pulmonary HTN Hx of CVA Hx of R kidney surgery PLAN OF CARE Telemetry floor Serial troponin 3 negative, ECG no acute ischemic changes, ruled out for acute [place] cardio follows Lipid panel with LDL 110, continue statin in SR, on BB, dose increased as per cardio no a/coagulation given new onset - as per cardio continue ASA and Brilinta ( not available, therefore in hospital Plavix) Aspirin , Plavix ,beta parminder, statin, nitroglycerin ECHO with ejection fraction of 60% and right ventricular systolic pressure 56 consistent with a moderate pulmonary hypertension stress test pending Supplemental oxygen as needed to keep pulse oximetry above 92% pulmonary toilet as needed DVT prophylaxis case discussed and evaluated by supervising physician Subjective Allergies: Coded Allergies: No Known Allergies (Unverified , 02/05/18) Subjective denies chest pain currently in SR stress test pending Objective Last 24 Hour Vital Signs Date Time Temp Pulse Resp B/P (MAP) Pulse Ox O2 Delivery O2 Flow Rate FiO2 02/07/18 10:19 72 131/72 02/07/18 08:00 97.5 72 20 131/72 96 Room Air 97.5 02/07/18 04:00 48 02/07/18 00:00 60 02/07/18 00:00 97.3 57 20 118/61 96 Room Air 97.3 02/06/18 20:00 72 02/06/18 20:00 97.3 55 20 114/70 96 Room Air 97.3 02/06/18 16:00 97.7 50 20 109/67 95 Room Air 97.7 02/06/18 16:00 52 02/06/18 12:00 97.2 52 20 156/87 98 Room Air 97.2 02/06/18 12:00 57 Intake and Output 02/06/18 02/07/18 19:00 07:00 Intake Total 550 ml Balance 550 ml Intake Oral 550 ml # Voids 3 General Appearance: no acute distress HEENT: normocephalic, atraumatic, anicteric Respiratory/Chest: chest wall non-tender, lungs clear, no respiratory distress Cardiovascular: normal rate, regular rhythm - SR on tele Abdomen: normal bowel sounds, soft, non tender Extremities: no edema, pedal pulses normal Neurologic/Psychiatric: alert, responsive Musculoskeletal: normal muscle bulk Current Medications Medications (Trade) Dose Ordered Sig/Katie Route PRN Reason Start Time Stop Time Status Last Admin Dose Admin Acetaminophen (Tylenol) 650 mg Q4H PRN ORAL FEVER (>100.3) 02/05/18 19:47 03/07/18 19:46 Albuterol/ Ipratropium (Albuterol/ Ipratropium) 3 ml EVERY 4 HOURS PRN HHN Shortness of Breath 02/05/18 19:46 02/10/18 19:45 Aspirin (ASA) 162 mg DAILY ORAL 02/06/18 09:00 03/08/18 08:59 02/07/18 10:18 Atorvastatin Calcium (Lipitor) 40 mg BEDTIME ORAL 02/05/18 21:00 03/07/18 20:59 02/06/18 21:06 Clopidogrel Bisulfate (Plavix) 75 mg DAILY ORAL 02/07/18 09:00 03/09/18 08:59 02/07/18 10:18 Diltiazem HCl (Cardizem) 10 mg EVERY HOUR PRN IV heart rate more than 120, 02/05/18 19:49 03/07/18 19:48 Enalaprilat (Vasotec) 2.5 mg EVERY 6 HOURS PRN IV sbp more than 160 02/05/18 19:49 03/07/18 19:48 Heparin Sodium (Porcine) (Heparin 5000 units/ml) 5,000 units EVERY 12 HOURS SUBQ 02/05/18 21:00 03/07/18 20:59 02/07/18 10:20 Ketorolac Tromethamine (Toradol 30mg) 30 mg Q6HR PRN IV moderate pain ( 4-6) 02/05/18 19:49 02/10/18 19:48 Lorazepam (Ativan) 1 mg Q6H PRN ORAL For Anxiety 02/06/18 12:15 02/13/18 12:14 Metoprolol Succinate (Toprol XL) 50 mg DAILY ORAL 02/07/18 09:00 03/08/18 08:59 02/07/18 10:19 Nitroglycerin (Ntg) 0.4 mg STAT PRN SL Prn Chest Pain 02/05/18 19:46 03/07/18 19:45 Ondansetron HCl (Zofran) 4 mg Q6H PRN IVP Nausea & Vomiting 02/05/18 19:48 03/07/18 19:47 Polyethylene Glycol (Miralax) 17 gm DAILYPRN PRN ORAL Constipation 02/05/18 19:48 03/07/18 19:47 Regadenoson (Lexiscan) 0.4 mg ONCE PRN IV STRESS TEST 02/06/18 15:00 02/07/18 23:59 Temazepam (Restoril) 15 mg HSPRN PRN ORAL Insomnia 02/05/18 21:00 02/12/18 20:59 [place] ([facility])Janay NP February 07, 2018 11:00
[2018-02-07 12:00] VITALS: BP 126/89
--- NOTE | 2018-02-07 12:43 | Internal Med Progress Note ---
Subjective Date of Service: February 07, 2018 Physician Name Richard Rincon Attending Physician Daquan Monahan MD Current Medications Medications (Trade) Dose Ordered Sig/Katie Route PRN Reason Start Time Stop Time Status Last Admin Dose Admin Acetaminophen (Tylenol) 650 mg Q4H PRN ORAL FEVER (>100.3) 02/05/18 19:47 03/07/18 19:46 Albuterol/ Ipratropium (Albuterol/ Ipratropium) 3 ml EVERY 4 HOURS PRN HHN Shortness of Breath 02/05/18 19:46 02/10/18 19:45 Aspirin (ASA) 162 mg DAILY ORAL 02/06/18 09:00 03/08/18 08:59 02/07/18 10:18 Atorvastatin Calcium (Lipitor) 40 mg BEDTIME ORAL 02/05/18 21:00 03/07/18 20:59 02/06/18 21:06 Clopidogrel Bisulfate (Plavix) 75 mg DAILY ORAL 02/07/18 09:00 03/09/18 08:59 02/07/18 10:18 Diltiazem HCl (Cardizem) 10 mg EVERY HOUR PRN IV heart rate more than 120, 02/05/18 19:49 03/07/18 19:48 Enalaprilat (Vasotec) 2.5 mg EVERY 6 HOURS PRN IV sbp more than 160 02/05/18 19:49 03/07/18 19:48 Heparin Sodium (Porcine) (Heparin 5000 units/ml) 5,000 units EVERY 12 HOURS SUBQ 02/05/18 21:00 03/07/18 20:59 02/07/18 10:20 Ketorolac Tromethamine (Toradol 30mg) 30 mg Q6HR PRN IV moderate pain ( 4-6) 02/05/18 19:49 02/10/18 19:48 Lorazepam (Ativan) 1 mg Q6H PRN ORAL For Anxiety 02/06/18 12:15 02/13/18 12:14 Metoprolol Succinate (Toprol XL) 50 mg DAILY ORAL 02/07/18 09:00 03/08/18 08:59 02/07/18 10:19 Nitroglycerin (Ntg) 0.4 mg STAT PRN SL Prn Chest Pain 02/05/18 19:46 03/07/18 19:45 Ondansetron HCl (Zofran) 4 mg Q6H PRN IVP Nausea & Vomiting 02/05/18 19:48 03/07/18 19:47 Polyethylene Glycol (Miralax) 17 gm DAILYPRN PRN ORAL Constipation 02/05/18 19:48 03/07/18 19:47 Regadenoson (Lexiscan) 0.4 mg ONCE PRN IV STRESS TEST 02/06/18 15:00 02/07/18 23:59 Temazepam (Restoril) 15 mg HSPRN PRN ORAL Insomnia 02/05/18 21:00 02/12/18 20:59 Allergies: Coded Allergies: No Known Allergies (Unverified , 02/05/18) ROS Limited/Unobtainable: No Constitutional: Reports: no symptoms HEENT: Reports: no symptoms Cardiovascular: Reports: irregular heart rate, palpitations Respiratory: Reports: no symptoms Gastrointestinal/Abdominal: Reports: no symptoms Genitourinary: Reports: no symptoms Neurologic/Psychiatric: Reports: no symptoms Subjective 78 YO M admitted with chest pain. Now atrial fibrillation with rapid ventricular rate. Cover for [facility]-DR Monahan. Objective Last Vital Signs Date Time Temp Pulse Resp B/P (MAP) Pulse Ox O2 Delivery O2 Flow Rate FiO2 02/07/18 10:19 72 131/72 02/07/18 08:00 97.5 20 96 Room Air 97.5 General Appearance: WD/WN, no apparent distress, alert EENT: PERRL/EOMI, normal ENT inspection, TMs normal Neck: non-tender, normal alignment, supple Cardiovascular: normal peripheral pulses, normal rate, regular rhythm, no gallop/murmur Respiratory/Chest: chest wall non-tender, lungs clear, normal breath sounds, no respiratory distress, no accessory muscle use Abdomen: normal bowel sounds, non tender, soft, no organomegaly, no mass Extremities: normal range of motion, non-tender 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 Continue toporlol, ASA and plavix per cardiology (3) Hypertension (4) CAD (coronary artery disease) Assessment & Plan: Await NM myocardial perfusion study Friday02/09/18. See cardiology note. Status: not improved RICHARD RINCON February 07, 2018 12:43
[2018-02-07 16:00] VITALS: BP 134/78
--- NOTE | 2018-02-07 16:05 | Cardiac Electrophysiology PN ---
Assessment/Plan Assessment/Plan 1. Atrial fibrillation with rapid ventricular response of new onset.Converted to SR On Toprol 50 mg daily. Since this is newly diagnosed, we will hold off on full anticoagulation, but continue aspirin and Plavix. Echocardiogram showed ejection fraction of 60%. If the stress is negative, we will start the patient on flecainide. 2. Hypertension. On Toprol-XL to 50 mg daily. 3. History of coronary artery disease without any chest pain currently. Subjective Subjective Feeling better.No chest pain. Objective Last 24 Hour Vital Signs Date Time Temp Pulse Resp B/P (MAP) Pulse Ox O2 Delivery O2 Flow Rate FiO2 02/07/18 12:00 84 02/07/18 12:00 96.4 66 20 126/89 96 Room Air 96.4 02/07/18 10:19 72 131/72 02/07/18 08:00 97.5 72 20 131/72 96 Room Air 97.5 02/07/18 08:00 53 02/07/18 04:00 48 02/07/18 00:00 60 02/07/18 00:00 97.3 57 20 118/61 96 Room Air 97.3 02/06/18 20:00 72 02/06/18 20:00 97.3 55 20 114/70 96 Room Air 97.3 Intake and Output 02/06/18 02/07/18 19:00 07:00 Intake Total 550 ml Balance 550 ml Intake Oral 550 ml # Voids 3 Objective HEAD AND NECK: No JVD. LUNGS: Clear. CARDIOVASCULAR: Regular S1 and S2 with no gallop or murmur. ABDOMEN: Soft. EXTREMITIES: No pitting edema. Royce Rapp MD February 07, 2018 16:05
[2018-02-07 20:00] VITALS: BP 106/66
[2018-02-07] MEDS: Atorvastatin 20mg tab ORAL SCH (21:07)
[2018-02-08] VITALS: BP 116/67
[2018-02-08 04:00] VITALS: BP 141/59
[2018-02-08 05:35] LABS: BASOPHILS % (AUTO) 1.3 % (0.0-2.0); EOSINOPHILS % (AUTO) 2.5 % (0.0-3.0); HEMATOCRIT 45.6 % (42.0-52.0); HEMOGLOBIN 16.6 G/DL (14.2-18.0); LYMPHOCYTES % (AUTO) 38.2 % (20.0-45.0); MEAN CORPUSCULAR VOLUME 98 FL (80-99); NEUTROPHILS % (AUTO) 47.1 % (45.0-75.0); PLATELET COUNT 151 K/UL (150-450); RED BLOOD COUNT 4.65 M/UL (4.70-6.10); RED CELL DISTRIBUTION WIDTH 12.2 % (11.6-14.8); WHITE BLOOD COUNT 8.3 K/UL (4.8-10.8)
[2018-02-08 05:55] LABS: ANION GAP 7 mmol/L (5-15); BLOOD UREA NITROGEN 9 mg/dL (7-18); CALCIUM 9.2 MG/DL (8.5-10.1); CARBON DIOXIDE 29 MMOL/L (21-32); CHLORIDE 106 MMOL/L (98-107); POTASSIUM 4.4 MMOL/L (3.5-5.1); SODIUM 142 MMOL/L (136-145)
[2018-02-08 08:00] VITALS: BP 150/76
[2018-02-08] MEDS: Metoprolol Succinate XL 50mg tab ORAL SCH (09:24)
[2018-02-08] MEDS: Heparin 5000 units/ml inj SUBQ SCH ×2 (09:29→20:55)
[2018-02-08] MEDS: Aspirin Baby 81mg ORAL SCH (09:30)
--- NOTE | 2018-02-08 09:31 | Pulmonology Progress Note ---
Assessment/Plan Assessment/Plan ASSESSMENT atrial fibrillation with rapid ventricular response chest pain, r/o acute coronary syndrome HTN CAD with hx of [place] Hypercholesteremia Moderate pulmonary HTN Hx of CVA Hx of R kidney surgery PLAN OF CARE Telemetry floor Serial troponin 3 negative, ECG no acute ischemic changes, ruled out for acute [place] cardio follows Lipid panel with LDL 110, continue statin in SR, on BB, dose increased as per cardio no a/coagulation given new onset - as per cardio continue ASA and Brilinta ( not available, therefore in hospital Plavix) Aspirin , Plavix ,beta parminder, statin, nitroglycerin ECHO with ejection fraction of 60% and right ventricular systolic pressure 56 consistent with a moderate pulmonary hypertension stress test pending for am Supplemental oxygen as needed to keep pulse oximetry above 92% pulmonary toilet as needed DVT prophylaxis case discussed and evaluated by supervising physician Subjective Allergies: Coded Allergies: No Known Allergies (Unverified , 02/05/18) Subjective denies chest pain currently in SR stress test pending for am Objective Last 24 Hour Vital Signs Date Time Temp Pulse Resp B/P (MAP) Pulse Ox O2 Delivery O2 Flow Rate FiO2 02/08/18 08:00 97.7 66 20 150/76 98 Room Air 97.7 02/08/18 04:00 51 02/08/18 04:00 98.3 65 18 141/59 95 Room Air 98.3 02/08/18 00:00 54 02/08/18 00:00 98.2 58 20 116/67 97 Room Air 98.2 02/07/18 20:00 97.3 46 20 106/66 94 Room Air 97.3 02/07/18 20:00 56 02/07/18 16:00 97.2 60 20 134/78 97 Room Air 97.2 02/07/18 16:00 55 02/07/18 12:00 84 02/07/18 12:00 96.4 66 20 126/89 96 Room Air 96.4 02/07/18 10:19 72 131/72 Intake and Output 02/07/18 02/08/18 19:00 07:00 Intake Total 840 ml Balance 840 ml Intake Oral 840 ml # Voids 4 3 Objective General Appearance: no acute distress, A/A/O x 3 Bur[place]ian speaking male HEENT: normocephalic, atraumatic, anicteric Respiratory/Chest: chest wall non-tender, lungs clear, no respiratory distress Cardiovascular: normal rate, regular rhythm - SR on tele Abdomen: normal bowel sounds, soft, non tender Extremities: no edema, pedal pulses normal Neurologic/Psychiatric: alert, awake, responsive Musculoskeletal: normal muscle bulk, no gross focal Laboratory Tests 02/07/18 19:35: Troponin I 0.000 02/08/18 04:35: White Blood Count 8.3, Red Blood Count 4.65L, Hemoglobin 16.6, Hematocrit 45.6, Mean Corpuscular Volume 98, Mean Corpuscular Hemoglobin 35.8H, Mean Corpuscular Hemoglobin Concent 36.5H, Red Cell Distribution Width 12.2, Platelet Count 151, Mean Platelet Volume 9.1, Neutrophils (%) (Auto) 47.1, Lymphocytes (%) (Auto) 38.2, Monocytes (%) (Auto) 11.0H, Eosinophils (%) (Auto) 2.5, Basophils (%) ( Auto) 1.3, Sodium Level 142, Potassium Level 4.4, Chloride Level 106, Carbon Dioxide Level 29, Anion Gap 7, Blood Urea Nitrogen 9, Creatinine 1.0, Estimat Glomerular Filtration Rate , Glucose Level 116H, Calcium Level 9.2 Current Medications Medications (Trade) Dose Ordered Sig/Katie Route PRN Reason Start Time Stop Time Status Last Admin Dose Admin Acetaminophen (Tylenol) 650 mg Q4H PRN ORAL FEVER (>100.3) 02/05/18 19:47 03/07/18 19:46 Albuterol/ Ipratropium (Albuterol/ Ipratropium) 3 ml EVERY 4 HOURS PRN HHN Shortness of Breath 02/05/18 19:46 02/10/18 19:45 Aspirin (ASA) 162 mg DAILY ORAL 02/06/18 09:00 03/08/18 08:59 02/07/18 10:18 Atorvastatin Calcium (Lipitor) 40 mg BEDTIME ORAL 02/05/18 21:00 03/07/18 20:59 02/07/18 21:07 Clopidogrel Bisulfate (Plavix) 75 mg DAILY ORAL 02/07/18 09:00 03/09/18 08:59 02/07/18 10:18 Diltiazem HCl (Cardizem) 10 mg EVERY HOUR PRN IV heart rate more than 120, 02/05/18 19:49 6/2/18 19:48 Enalaprilat (Vasotec) 2.5 mg EVERY 6 HOURS PRN IV sbp more than 160 02/05/18 19:49 03/07/18 19:48 Heparin Sodium (Porcine) (Heparin 5000 units/ml) 5,000 units EVERY 12 HOURS SUBQ 02/05/18 21:00 03/07/18 20:59 02/07/18 10:20 Ketorolac Tromethamine (Toradol 30mg) 30 mg Q6HR PRN IV moderate pain ( 4-6) 02/05/18 19:49 02/10/18 19:48 Lorazepam (Ativan) 1 mg Q6H PRN ORAL For Anxiety 02/06/18 12:15 02/13/18 12:14 Metoprolol Succinate (Toprol XL) 50 mg DAILY ORAL 02/07/18 09:00 03/08/18 08:59 02/07/18 10:19 Nitroglycerin (Ntg) 0.4 mg STAT PRN SL Prn Chest Pain 02/05/18 19:46 03/07/18 19:45 Ondansetron HCl (Zofran) 4 mg Q6H PRN IVP Nausea & Vomiting 02/05/18 19:48 03/07/18 19:47 Polyethylene Glycol (Miralax) 17 gm DAILYPRN PRN ORAL Constipation 02/05/18 19:48 03/07/18 19:47 Temazepam (Restoril) 15 mg HSPRN PRN ORAL Insomnia 02/05/18 21:00 02/12/18 20:59 Janay Shultz NP ([place]) February 08, 2018 09:31
[2018-02-08] MEDS ORDERED: Pneumococcal Vaccine 25mcg/0.5ml IM ONE (10:00)
[2018-02-08 12:00] VITALS: BP 107/64
--- NOTE | 2018-02-08 13:22 | Cardiac Electrophysiology PN ---
Assessment/Plan Assessment/Plan 1. Atrial fibrillation with rapid ventricular response of new onset. Converted to SR On Toprol 50 mg daily. Since this is newly diagnosed, we will hold off on full anticoagulation, but continue aspirin and Plavix. Echocardiogram showed ejection fraction of 60%. If the stress is negative, we will start the patient on flecainide. 2. Hypertension. On Toprol-XL to 50 mg daily. 3. History of coronary artery disease, S/P stent without any chest pain On Aspirin, Plavix, Toprol and Lipitor Subjective Subjective Feeling better.No chest pain or SOB. Objective Last 24 Hour Vital Signs Date Time Temp Pulse Resp B/P (MAP) Pulse Ox O2 Delivery O2 Flow Rate FiO2 02/08/18 12:00 60 02/08/18 12:00 97.6 69 19 107/64 98 Room Air 97.6 02/08/18 09:24 66 150/76 02/08/18 08:00 71 02/08/18 08:00 97.7 66 20 150/76 98 Room Air 97.7 02/08/18 04:00 51 02/08/18 04:00 98.3 65 18 141/59 95 Room Air 98.3 02/08/18 00:00 54 02/08/18 00:00 98.2 58 20 116/67 97 Room Air 98.2 02/07/18 20:00 97.3 46 20 106/66 94 Room Air 97.3 02/07/18 20:00 56 02/07/18 16:00 97.2 60 20 134/78 97 Room Air 97.2 02/07/18 16:00 55 Intake and Output 02/07/18 02/08/18 19:00 07:00 Intake Total 840 ml Balance 840 ml Intake Oral 840 ml # Voids 4 3 Laboratory Tests Test 02/07/18 19:35 02/08/18 04:35 Troponin I 0.000 ng/mL (0.000-0.056) White Blood Count 8.3 K/UL (4.8-10.8) Red Blood Count 4.65 M/UL (4.70-6.10) L Hemoglobin 16.6 G/DL (14.2-18.0) Hematocrit 45.6 % (42.0-52.0) Mean Corpuscular Volume 98 FL (80-99) Mean Corpuscular Hemoglobin 35.8 PG (27.0-31.0) H Mean Corpuscular Hemoglobin Concent 36.5 G/DL (32.0-36.0) H Red Cell Distribution Width 12.2 % (11.6-14.8) Platelet Count 151 K/UL (150-450) Mean Platelet Volume 9.1 FL (6.5-10.1) Neutrophils (%) (Auto) 47.1 % (45.0-75.0) Lymphocytes (%) (Auto) 38.2 % (20.0-45.0) Monocytes (%) (Auto) 11.0 % (1.0-10.0) H Eosinophils (%) (Auto) 2.5 % (0.0-3.0) Basophils (%) (Auto) 1.3 % (0.0-2.0) Sodium Level 142 MMOL/L (136-145) Potassium Level 4.4 MMOL/L (3.5-5.1) Chloride Level 106 MMOL/L (98-107) Carbon Dioxide Level 29 MMOL/L (21-32) Anion Gap 7 mmol/L (5-15) Blood Urea Nitrogen 9 mg/dL (7-18) Creatinine 1.0 MG/DL (0.55-1.30) Estimat Glomerular Filtration Rate mL/min (>60) Glucose Level 116 MG/DL (74-106) H Calcium Level 9.2 MG/DL (8.5-10.1) Objective HEAD AND NECK: No JVD. LUNGS: Clear. CARDIOVASCULAR: Regular S1 and S2 with no gallop or murmur. ABDOMEN: Soft. EXTREMITIES: No pitting edema. Royce Rapp MD February 08, 2018 13:22
--- NOTE | 2018-02-08 15:11 | Internal Med Progress Note ---
Subjective Date of Service: February 08, 2018 Physician Name Richard Rincon Attending Physician Daquan Monahan MD Current Medications Medications (Trade) Dose Ordered Sig/Katie Route PRN Reason Start Time Stop Time Status Last Admin Dose Admin Acetaminophen (Tylenol) 650 mg Q4H PRN ORAL FEVER (>100.3) 02/05/18 19:47 03/07/18 19:46 Albuterol/ Ipratropium (Albuterol/ Ipratropium) 3 ml EVERY 4 HOURS PRN HHN Shortness of Breath 02/05/18 19:46 02/10/18 19:45 Aspirin (ASA) 162 mg DAILY ORAL 02/06/18 09:00 03/08/18 08:59 02/08/18 09:30 Atorvastatin Calcium (Lipitor) 40 mg BEDTIME ORAL 02/05/18 21:00 03/07/18 20:59 02/07/18 21:07 Clopidogrel Bisulfate (Plavix) 75 mg DAILY ORAL 02/07/18 09:00 03/09/18 08:59 02/08/18 09:23 Diltiazem HCl (Cardizem) 10 mg EVERY HOUR PRN IV heart rate more than 120, 02/05/18 19:49 03/07/18 19:48 Enalaprilat (Vasotec) 2.5 mg EVERY 6 HOURS PRN IV sbp more than 160 02/05/18 19:49 03/07/18 19:48 Heparin Sodium (Porcine) (Heparin 5000 units/ml) 5,000 units EVERY 12 HOURS SUBQ 02/05/18 21:00 03/07/18 20:59 02/08/18 09:29 Ketorolac Tromethamine (Toradol 30mg) 30 mg Q6HR PRN IV moderate pain ( 4-6) 02/05/18 19:49 02/10/18 19:48 Lorazepam (Ativan) 1 mg Q6H PRN ORAL For Anxiety 02/06/18 12:15 02/13/18 12:14 Metoprolol Succinate (Toprol XL) 50 mg DAILY ORAL 02/07/18 09:00 03/08/18 08:59 02/08/18 09:24 Nitroglycerin (Ntg) 0.4 mg STAT PRN SL Prn Chest Pain 02/05/18 19:46 03/07/18 19:45 Ondansetron HCl (Zofran) 4 mg Q6H PRN IVP Nausea & Vomiting 02/05/18 19:48 03/07/18 19:47 Polyethylene Glycol (Miralax) 17 gm DAILYPRN PRN ORAL Constipation 02/05/18 19:48 03/07/18 19:47 Temazepam (Restoril) 15 mg HSPRN PRN ORAL Insomnia 02/05/18 21:00 02/12/18 20:59 Allergies: Coded Allergies: No Known Allergies (Unverified , 02/05/18) ROS Limited/Unobtainable: No Constitutional: Reports: no symptoms HEENT: Reports: no symptoms Cardiovascular: Reports: no symptoms Respiratory: Reports: no symptoms Gastrointestinal/Abdominal: Reports: no symptoms Genitourinary: Reports: no symptoms Neurologic/Psychiatric: Reports: no symptoms Subjective 78 YO M admitted with chest pain. Now atrial fibrillation with rapid ventricular rate. Cover for Int Med-DR Monahan. Objective Last Vital Signs Date Time Temp Pulse Resp B/P (MAP) Pulse Ox O2 Delivery O2 Flow Rate FiO2 02/08/18 12:00 60 02/08/18 12:00 97.6 19 107/64 98 Room Air 97.6 Laboratory Tests Test 02/07/18 19:35 02/08/18 04:35 Troponin I 0.000 ng/mL (0.000-0.056) White Blood Count 8.3 K/UL (4.8-10.8) Red Blood Count 4.65 M/UL (4.70-6.10) L Hemoglobin 16.6 G/DL (14.2-18.0) Hematocrit 45.6 % (42.0-52.0) Mean Corpuscular Volume 98 FL (80-99) Mean Corpuscular Hemoglobin 35.8 PG (27.0-31.0) H Mean Corpuscular Hemoglobin Concent 36.5 G/DL (32.0-36.0) H Red Cell Distribution Width 12.2 % (11.6-14.8) Platelet Count 151 K/UL (150-450) Mean Platelet Volume 9.1 FL (6.5-10.1) Neutrophils (%) (Auto) 47.1 % (45.0-75.0) Lymphocytes (%) (Auto) 38.2 % (20.0-45.0) Monocytes (%) (Auto) 11.0 % (1.0-10.0) H Eosinophils (%) (Auto) 2.5 % (0.0-3.0) Basophils (%) (Auto) 1.3 % (0.0-2.0) Sodium Level 142 MMOL/L (136-145) Potassium Level 4.4 MMOL/L (3.5-5.1) Chloride Level 106 MMOL/L (98-107) Carbon Dioxide Level 29 MMOL/L (21-32) Anion Gap 7 mmol/L (5-15) Blood Urea Nitrogen 9 mg/dL (7-18) Creatinine 1.0 MG/DL (0.55-1.30) Estimat Glomerular Filtration Rate mL/min (>60) Glucose Level 116 MG/DL (74-106) H Calcium Level 9.2 MG/DL (8.5-10.1) Intake and Output 02/07/18 02/08/18 19:00 07:00 Intake Total 840 ml Balance 840 ml Intake Oral 840 ml # Voids 4 3 Objective General Appearance: WD/WN, no apparent distress, alert EENT: PERRL/EOMI, normal ENT inspection, TMs normal Neck: non-tender, normal alignment, supple Cardiovascular: normal peripheral pulses, normal rate, regular rhythm, no gallop/murmur Respiratory/Chest: chest wall non-tender, lungs clear, normal breath sounds, no respiratory distress, no accessory muscle use Abdomen: normal bowel sounds, non tender, soft, no organomegaly, no mass Extremities: normal range of motion, non-tender 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 Continue toporlol, ASA and plavix per cardiology (3) Hypertension (4) CAD (coronary artery disease) Assessment & Plan: Await NM myocardial perfusion study Friday02/09/18. See cardiology note. Status: doing well RINCONRICHARD February 08, 2018 15:11
[2018-02-08 16:00] VITALS: BP 101/62
[2018-02-08 20:00] VITALS: BP 101/64
[2018-02-08] MEDS: Atorvastatin 20mg tab ORAL SCH (20:52)
[2018-02-09] VITALS: BP 95/57
[2018-02-09 04:00] VITALS: BP 98/58
[2018-02-09 08:15] VITALS: BP 123/77
[2018-02-09] MEDS: Aspirin Baby 81mg ORAL SCH (08:52)
[2018-02-09] MEDS: Heparin 5000 units/ml inj SUBQ SCH (08:54)
[2018-02-09] MEDS: Metoprolol Succinate XL 50mg tab ORAL SCH (09:00)
[2018-02-09 09:49] LABS: BASOPHILS % (AUTO) 0.6 % (0.0-2.0); EOSINOPHILS % (AUTO) 1.5 % (0.0-3.0); HEMATOCRIT 48.3 % (42.0-52.0); HEMOGLOBIN 17.3 G/DL (14.2-18.0); LYMPHOCYTES % (AUTO) 24.5 % (20.0-45.0); MEAN CORPUSCULAR VOLUME 99 FL (80-99); MONOCYTES % (AUTO) 9.2 % (1.0-10.0); NEUTROPHILS % (AUTO) 64.3 % (45.0-75.0); PLATELET COUNT 140 K/UL (150-450); RED BLOOD COUNT 4.88 M/UL (4.70-6.10); WHITE BLOOD COUNT 11.5 K/UL (4.8-10.8)
--- NOTE | 2018-02-09 10:43 | Internal Med Progress Note ---
Subjective Date of Service: February 09, 2018 Physician Name Richard Rincon Attending Physician Daquan Monahan MD Current Medications Medications (Trade) Dose Ordered Sig/Katie Route PRN Reason Start Time Stop Time Status Last Admin Dose Admin Acetaminophen (Tylenol) 650 mg Q4H PRN ORAL FEVER (>100.3) 02/05/18 19:47 03/07/18 19:46 Albuterol/ Ipratropium (Albuterol/ Ipratropium) 3 ml EVERY 4 HOURS PRN HHN Shortness of Breath 02/05/18 19:46 02/10/18 19:45 Aspirin (ASA) 162 mg DAILY ORAL 02/06/18 09:00 03/08/18 08:59 02/09/18 08:52 Atorvastatin Calcium (Lipitor) 40 mg BEDTIME ORAL 02/05/18 21:00 03/07/18 20:59 02/08/18 20:52 Clopidogrel Bisulfate (Plavix) 75 mg DAILY ORAL 02/07/18 09:00 03/09/18 08:59 02/09/18 08:52 Diltiazem HCl (Cardizem) 10 mg EVERY HOUR PRN IV heart rate more than 120, 02/05/18 19:49 03/07/18 19:48 Enalaprilat (Vasotec) 2.5 mg EVERY 6 HOURS PRN IV sbp more than 160 02/05/18 19:49 03/07/18 19:48 Heparin Sodium (Porcine) (Heparin 5000 units/ml) 5,000 units EVERY 12 HOURS SUBQ 02/05/18 21:00 03/07/18 20:59 02/09/18 08:54 Ketorolac Tromethamine (Toradol 30mg) 30 mg Q6HR PRN IV moderate pain ( 4-6) 02/05/18 19:49 02/10/18 19:48 Lorazepam (Ativan) 1 mg Q6H PRN ORAL For Anxiety 02/06/18 12:15 02/13/18 12:14 Metoprolol Succinate (Toprol XL) 50 mg DAILY ORAL 02/07/18 09:00 03/08/18 08:59 02/08/18 09:24 Nitroglycerin (Ntg) 0.4 mg STAT PRN SL Prn Chest Pain 02/05/18 19:46 03/07/18 19:45 Ondansetron HCl (Zofran) 4 mg Q6H PRN IVP Nausea & Vomiting 02/05/18 19:48 03/07/18 19:47 Polyethylene Glycol (Miralax) 17 gm DAILYPRN PRN ORAL Constipation 02/05/18 19:48 03/07/18 19:47 Temazepam (Restoril) 15 mg HSPRN PRN ORAL Insomnia 02/05/18 21:00 02/12/18 20:59 Allergies: Coded Allergies: No Known Allergies (Unverified , 02/05/18) ROS Limited/Unobtainable: No Constitutional: Reports: no symptoms HEENT: Reports: no symptoms Cardiovascular: Reports: chest pain Respiratory: Reports: no symptoms Gastrointestinal/Abdominal: Reports: no symptoms Genitourinary: Reports: no symptoms Neurologic/Psychiatric: Reports: no symptoms Subjective 78 YO M admitted with chest pain. Now atrial fibrillation with rapid ventricular rate. Cover for Int Med-DR Monahan. Await nuclear medicine myocardial perfusion study today Objective Last Vital Signs Date Time Temp Pulse Resp B/P (MAP) Pulse Ox O2 Delivery O2 Flow Rate FiO2 02/09/18 07:23 52 02/09/18 04:00 98.4 18 98/58 94 Room Air 98.4 Laboratory Tests Test 02/09/18 07:25 White Blood Count 11.5 K/UL (4.8-10.8) H Red Blood Count 4.88 M/UL (4.70-6.10) Hemoglobin 17.3 G/DL (14.2-18.0) Hematocrit 48.3 % (42.0-52.0) Mean Corpuscular Volume 99 FL (80-99) Mean Corpuscular Hemoglobin 35.4 PG (27.0-31.0) H Mean Corpuscular Hemoglobin Concent 35.8 G/DL (32.0-36.0) Red Cell Distribution Width 12.0 % (11.6-14.8) Platelet Count 140 K/UL (150-450) L Mean Platelet Volume 7.7 FL (6.5-10.1) Neutrophils (%) (Auto) 64.3 % (45.0-75.0) Lymphocytes (%) (Auto) 24.5 % (20.0-45.0) Monocytes (%) (Auto) 9.2 % (1.0-10.0) Eosinophils (%) (Auto) 1.5 % (0.0-3.0) Basophils (%) (Auto) 0.6 % (0.0-2.0) Sodium Level Pending Potassium Level Pending Chloride Level Pending Carbon Dioxide Level Pending Blood Urea Nitrogen Pending Creatinine Pending Estimat Glomerular Filtration Rate Pending Glucose Level Pending Calcium Level Pending Total Bilirubin Pending Aspartate Amino Transf (AST/SGOT) Pending Alanine Aminotransferase (ALT/SGPT) Pending Alkaline Phosphatase Pending Total Protein Pending Albumin Pending Globulin Pending Intake and Output 02/08/18 02/09/18 19:00 07:00 Intake Total 620 ml 300 ml Output Total 225 ml Balance 620 ml 75 ml Intake Oral 620 ml 300 ml Output Urine Total 225 ml # Voids 5 Objective General Appearance: WD/WN, no apparent distress, alert EENT: PERRL/EOMI, normal ENT inspection, TMs normal Neck: non-tender, normal alignment, supple Cardiovascular: normal peripheral pulses, normal rate, regular rhythm, no gallop/murmur Respiratory/Chest: chest wall non-tender, lungs clear, normal breath sounds, no respiratory distress, no accessory muscle use Abdomen: normal bowel sounds, non tender, soft, no organomegaly, no mass Extremities: normal range of motion, non-tender 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 Continue toporlol, ASA and plavix per cardiology (3) Hypertension (4) CAD (coronary artery disease) Assessment & Plan: Await NM myocardial perfusion study Friday02/09/18. See cardiology note. Status: stable RICHARD RINCON February 09, 2018 10:43
[2018-02-09 10:46] LABS: ALANINE AMINOTRANSFERASE 31 U/L (12-78); ALBUMIN 3.6 G/DL (3.4-5.0); ALBUMIN/GLOBULIN RATIO 0.9 (1.0-2.7); ALKALINE PHOSPHATASE 58 U/L (46-116); ANION GAP 7 mmol/L (5-15); ASPARTATE AMINO TRANSFERASE 24 U/L (15-37); BILIRUBIN,TOTAL 1.4 MG/DL (0.2-1.0); BLOOD UREA NITROGEN 10 mg/dL (7-18); CALCIUM 9.4 MG/DL (8.5-10.1); CARBON DIOXIDE 29 MMOL/L (21-32); CHLORIDE 103 MMOL/L (98-107); POTASSIUM 4.8 MMOL/L (3.5-5.1); SODIUM 139 MMOL/L (136-145)
[2018-02-09 10:48] LABS: BILIRUBIN,DIRECT 1.4 MG/DL (0.0-0.3)
[2018-02-09] MEDS ORDERED: Sodium Chloride 500ML 500 ML IV ONE (12:45)
[2018-02-09 13:00] VITALS: BP 108/68
--- NOTE | 2018-02-09 13:11 | Pulmonology Progress Note ---
Assessment/Plan Problems: (1) Atrial fibrillation with rapid ventricular response (2) ACS (acute coronary syndrome) (3) CAD (coronary artery disease) (4) Hypertension Assessment/Plan heart rate controlled awaiting stress studies BP cotrolled no SOB titrate fio2 to sat of 92% symptomatic treatment dvt prophylaxis f/u cardiology recommendations Subjective ROS Limited/Unobtainable: No Constitutional: Reports: no symptoms HEENT: Repors: no symptoms Respiratory: Reports: no symptoms Allergies: Coded Allergies: No Known Allergies (Unverified , 02/05/18) Objective Last 24 Hour Vital Signs Date Time Temp Pulse Resp B/P (MAP) Pulse Ox O2 Delivery O2 Flow Rate FiO2 02/09/18 11:43 56 02/09/18 08:15 98.0 58 18 123/77 96 Room Air 98.0 02/09/18 07:23 52 02/09/18 04:00 63 02/09/18 04:00 98.4 60 18 98/58 94 Room Air 98.4 02/09/18 00:00 97.9 63 18 95/57 93 Room Air 97.9 02/09/18 00:00 68 02/08/18 20:00 99.2 62 22 101/64 96 Room Air 99.2 02/08/18 20:00 66 02/08/18 16:00 97.9 56 19 101/62 96 Room Air 97.9 02/08/18 16:00 69 Intake and Output 02/08/18 02/09/18 19:00 07:00 Intake Total 620 ml 300 ml Output Total 225 ml Balance 620 ml 75 ml Intake Oral 620 ml 300 ml Output Urine Total 225 ml # Voids 5 General Appearance: WD/WN HEENT: normocephalic, atraumatic Respiratory/Chest: chest wall non-tender, lungs clear Cardiovascular: normal peripheral pulses, normal rate Abdomen: normal bowel sounds, soft, non tender Genitourinary: normal external genitalia Skin: no rash Neurologic/Psychiatric: care professionals II-XII grossly normal Laboratory Tests 02/09/18 07:25: White Blood Count 11.5H, Red Blood Count 4.88, Hemoglobin 17.3, Hematocrit 48.3 , Mean Corpuscular Volume 99, Mean Corpuscular Hemoglobin 35.4H, Mean Corpuscular Hemoglobin Concent 35.8, Red Cell Distribution Width 12.0, Platelet Count 140L, Mean Platelet Volume 7.7, Neutrophils (%) (Auto) 64.3, Lymphocytes ( %) (Auto) 24.5, Monocytes (%) (Auto) 9.2, Eosinophils (%) (Auto) 1.5, Basophils (%) (Auto) 0.6, Sodium Level 139, Potassium Level 4.8, Chloride Level 103, Carbon Dioxide Level 29, Anion Gap 7, Blood Urea Nitrogen 10, Creatinine 1.0, Estimat Glomerular Filtration Rate , Glucose Level 90, Calcium Level 9.4, Total Bilirubin 1.4H, Direct Bilirubin 1.4H, Aspartate Amino Transf (AST/SGOT) 24, Alanine Aminotransferase (ALT/SGPT) 31, Alkaline Phosphatase 58, Total Protein 7.7, Albumin 3.6, Globulin 4.1, Albumin/Globulin Ratio 0.9L Current Medications Medications (Trade) Dose Ordered Sig/Katie Route PRN Reason Start Time Stop Time Status Last Admin Dose Admin Acetaminophen (Tylenol) 650 mg Q4H PRN ORAL FEVER (>100.3) 02/05/18 19:47 03/07/18 19:46 Albuterol/ Ipratropium (Albuterol/ Ipratropium) 3 ml EVERY 4 HOURS PRN HHN Shortness of Breath 02/05/18 19:46 02/10/18 19:45 Aspirin (ASA) 162 mg DAILY ORAL 02/06/18 09:00 03/08/18 08:59 02/09/18 08:52 Atorvastatin Calcium (Lipitor) 40 mg BEDTIME ORAL 02/05/18 21:00 03/07/18 20:59 02/08/18 20:52 Clopidogrel Bisulfate (Plavix) 75 mg DAILY ORAL 02/07/18 09:00 03/09/18 08:59 02/09/18 08:52 Diltiazem HCl (Cardizem) 10 mg EVERY HOUR PRN IV heart rate more than 120, 02/05/18 19:49 03/07/18 19:48 Enalaprilat (Vasotec) 2.5 mg EVERY 6 HOURS PRN IV sbp more than 160 02/05/18 19:49 03/07/18 19:48 Heparin Sodium (Porcine) (Heparin 5000 units/ml) 5,000 units EVERY 12 HOURS SUBQ 02/05/18 21:00 03/07/18 20:59 02/09/18 08:54 Ketorolac Tromethamine (Toradol 30mg) 30 mg Q6HR PRN IV moderate pain ( 4-6) 02/05/18 19:49 02/10/18 19:48 Lorazepam (Ativan) 1 mg Q6H PRN ORAL For Anxiety 02/06/18 12:15 02/13/18 12:14 Metoprolol Succinate (Toprol XL) 50 mg DAILY ORAL 02/07/18 09:00 03/08/18 08:59 02/08/18 09:24 Nitroglycerin (Ntg) 0.4 mg STAT PRN SL Prn Chest Pain 02/05/18 19:46 03/07/18 19:45 Ondansetron HCl (Zofran) 4 mg Q6H PRN IVP Nausea & Vomiting 02/05/18 19:48 03/07/18 19:47 Polyethylene Glycol (Miralax) 17 gm DAILYPRN PRN ORAL Constipation 02/05/18 19:48 03/07/18 19:47 Sodium Chloride 500 ml @ 999 mls/hr Q31M ONCE IV 02/09/18 12:45 02/09/18 13:15 02/09/18 12:54 Temazepam (Restoril) 15 mg HSPRN PRN ORAL Insomnia 02/05/18 21:00 02/12/18 20:59 Niranjan Noriega MD February 09, 2018 13:11
--- NOTE | 2018-02-09 15:40 | Diagnostic Imaging Report ---
Indication: chest pain Technique: The study was conducted under the supervision of a commercial lines manager. lexiscan (regadenoson) infusion over 10 seconds followed by intravenous administration of 32.4 mCi of technetium 99m Myoview was performed. Three plane SPECT imaging of the heart was then performed. A resting study was performed as part of the one-day protocol with 10.1 mCi of technetium 99m myoview injected intravenously at that time. Three plane SPECT imaging of the heart was obtained. Comparison: None Clinical data: 1. Clinical response: Non ischemic 2. Electrocardiographic response: Non ischemic Findings: The myocardial perfusion scan demonstrates no significant perfusion defects. There is attenuation of the inferior wall. LVEF 60% IMPRESSION: No evidence of myocardial ischemia.
[2018-02-09 16:00] VITALS: BP 103/69
--- NOTE | 2018-02-09 16:09 | Cardiac Electrophysiology PN ---
Assessment/Plan Assessment/Plan 1. Atrial fibrillation with rapid ventricular response of new onset. Converted to SR On Toprol 50 mg daily. Since this is newly diagnosed, we will hold off on full anticoagulation, but continue aspirin and Plavix. Echocardiogram showed ejection fraction of 60%.Stress test today showed no ischemia. Will start the patient on flecainide. 2. Hypertension. On Toprol-XL to 50 mg daily. 3. History of coronary artery disease, S/P stent without any chest pain On Aspirin, Plavix, Toprol and Lipitor DW RN Subjective Subjective Feeling better.No chest pain or SOB. No arrhythmias Objective Last 24 Hour Vital Signs Date Time Temp Pulse Resp B/P (MAP) Pulse Ox O2 Delivery O2 Flow Rate FiO2 02/09/18 13:00 98.2 47 20 108/68 98 Room Air 98.2 02/09/18 11:43 56 02/09/18 09:00 56 123/77 02/09/18 08:15 98.0 58 18 123/77 96 Room Air 98.0 02/09/18 07:23 52 02/09/18 04:00 63 02/09/18 04:00 98.4 60 18 98/58 94 Room Air 98.4 02/09/18 00:00 97.9 63 18 95/57 93 Room Air 97.9 02/09/18 00:00 68 02/08/18 20:00 99.2 62 22 101/64 96 Room Air 99.2 02/08/18 20:00 66 Intake and Output 02/08/18 02/09/18 19:00 07:00 Intake Total 620 ml 300 ml Output Total 225 ml Balance 620 ml 75 ml Intake Oral 620 ml 300 ml Output Urine Total 225 ml # Voids 5 Laboratory Tests Test 02/09/18 07:25 White Blood Count 11.5 K/UL (4.8-10.8) H Red Blood Count 4.88 M/UL (4.70-6.10) Hemoglobin 17.3 G/DL (14.2-18.0) Hematocrit 48.3 % (42.0-52.0) Mean Corpuscular Volume 99 FL (80-99) Mean Corpuscular Hemoglobin 35.4 PG (27.0-31.0) H Mean Corpuscular Hemoglobin Concent 35.8 G/DL (32.0-36.0) Red Cell Distribution Width 12.0 % (11.6-14.8) Platelet Count 140 K/UL (150-450) L Mean Platelet Volume 7.7 FL (6.5-10.1) Neutrophils (%) (Auto) 64.3 % (45.0-75.0) Lymphocytes (%) (Auto) 24.5 % (20.0-45.0) Monocytes (%) (Auto) 9.2 % (1.0-10.0) Eosinophils (%) (Auto) 1.5 % (0.0-3.0) Basophils (%) (Auto) 0.6 % (0.0-2.0) Sodium Level 139 MMOL/L (136-145) Potassium Level 4.8 MMOL/L (3.5-5.1) Chloride Level 103 MMOL/L (98-107) Carbon Dioxide Level 29 MMOL/L (21-32) Anion Gap 7 mmol/L (5-15) Blood Urea Nitrogen 10 mg/dL (7-18) Creatinine 1.0 MG/DL (0.55-1.30) Estimat Glomerular Filtration Rate mL/min (>60) Glucose Level 90 MG/DL (74-106) Calcium Level 9.4 MG/DL (8.5-10.1) Total Bilirubin 1.4 MG/DL (0.2-1.0) H Direct Bilirubin 1.4 MG/DL (0.0-0.3) H Aspartate Amino Transf (AST/SGOT) 24 U/L (15-37) Alanine Aminotransferase (ALT/SGPT) 31 U/L (12-78) Alkaline Phosphatase 58 U/L (46-116) Total Protein 7.7 G/DL (6.4-8.2) Albumin 3.6 G/DL (3.4-5.0) Globulin 4.1 g/dL Albumin/Globulin Ratio 0.9 (1.0-2.7) L Objective HEAD AND NECK: No JVD. LUNGS: Clear. CARDIOVASCULAR: Regular S1 and S2 with no gallop or murmur. ABDOMEN: Soft. EXTREMITIES: No pitting edema. Royce Rapp MD February 09, 2018 16:09
--- NOTE | 2018-02-09 23:26 | General Progress Note ---
Assessment/Plan Status: stable, progressing Assessment/Plan Anxiety d/o cognitive impairment ativan prn Subjective Date patient seen: February 08, 2018 Neurologic/Psychiatric: Reports: anxiety, emotional problems Allergies: Coded Allergies: No Known Allergies (Unverified , 02/05/18) Objective Last 24 Hour Vital Signs Date Time Temp Pulse Resp B/P (MAP) Pulse Ox O2 Delivery O2 Flow Rate FiO2 02/09/18 16:00 68 02/09/18 16:00 97.7 64 20 103/69 97 Room Air 97.7 02/09/18 13:00 98.2 47 20 108/68 98 Room Air 98.2 02/09/18 11:43 56 02/09/18 09:00 56 123/77 02/09/18 08:15 98.0 58 18 123/77 96 Room Air 98.0 02/09/18 07:23 52 02/09/18 04:00 63 02/09/18 04:00 98.4 60 18 98/58 94 Room Air 98.4 02/09/18 00:00 97.9 63 18 95/57 93 Room Air 97.9 02/09/18 00:00 68 Intake and Output 02/08/18 02/09/18 19:00 07:00 Intake Total 620 ml 300 ml Output Total 225 ml Balance 620 ml 75 ml Intake Oral 620 ml 300 ml Output Urine Total 225 ml # Voids 5 Laboratory Tests 02/09/18 07:25: White Blood Count 11.5H, Red Blood Count 4.88, Hemoglobin 17.3, Hematocrit 48.3 , Mean Corpuscular Volume 99, Mean Corpuscular Hemoglobin 35.4H, Mean Corpuscular Hemoglobin Concent 35.8, Red Cell Distribution Width 12.0, Platelet Count 140L, Mean Platelet Volume 7.7, Neutrophils (%) (Auto) 64.3, Lymphocytes ( %) (Auto) 24.5, Monocytes (%) (Auto) 9.2, Eosinophils (%) (Auto) 1.5, Basophils (%) (Auto) 0.6, Sodium Level 139, Potassium Level 4.8, Chloride Level 103, Carbon Dioxide Level 29, Anion Gap 7, Blood Urea Nitrogen 10, Creatinine 1.0, Estimat Glomerular Filtration Rate , Glucose Level 90, Calcium Level 9.4, Total Bilirubin 1.4H, Direct Bilirubin 1.4H, Aspartate Amino Transf (AST/SGOT) 24, Alanine Aminotransferase (ALT/SGPT) 31, Alkaline Phosphatase 58, Total Protein 7.7, Albumin 3.6, Globulin 4.1, Albumin/Globulin Ratio 0.9L Height (Feet): 5 Height (Inches): 10.00 Weight (Pounds): 170 General Appearance: WD/WN, no apparent distress, alert Neurologic: oriented x 3, responsive, depressed affect Yasmani Hernandez M.D. February 09, 2018 23:26
--- NOTE | 2018-02-09 23:26 | Consultation ---
History of Present Illness General Date patient seen: February 07, 2018 Chief Complaint: Chest Pain Referring physician: Dr. Sanchez Present Illness Allergies: Coded Allergies: No Known Allergies (Unverified , 02/05/18) Medication History Scheduled Aspirin Ec* (Aspirin Ec*), 81 MG ORAL DAILY, (Reported) Atorvastatin Calcium* (Atorvastatin Calcium*), 40 MG ORAL BEDTIME, (Reported) Metoprolol Succinate* (Metoprolol Succinate*), 25 MG ORAL DAILY, (Reported) Ticagrelor* (Brilinta*), 90 MG PO BID, (Reported) Miscellaneous Medications Nitroglycerin (Nitrostat), 0.4 MG SL, (Reported) Patient History Limited by: medical condition History Provided By: Patient, Medical Record, PMD Healthcare decision maker N Resuscitation status Full Code Advanced Directive on File Past Medical/Surgical History Past Medical/Surgical History: (1) CAD (coronary artery disease) (2) Hypertension (3) Cerebral vascular disease (4) ACS (acute coronary syndrome) Review of Systems Psychiatric: Reports: prior hx, anxiety, depressed feelings Physical Exam General Appearance: no apparent distress, alert Neurologic: oriented x 3, responsive, depressed affect Last 24 Hour Vital Signs Date Time Temp Pulse Resp B/P (MAP) Pulse Ox O2 Delivery O2 Flow Rate FiO2 02/09/18 16:00 68 02/09/18 16:00 97.7 64 20 103/69 97 Room Air 97.7 02/09/18 13:00 98.2 47 20 108/68 98 Room Air 98.2 02/09/18 11:43 56 02/09/18 09:00 56 123/77 02/09/18 08:15 98.0 58 18 123/77 96 Room Air 98.0 02/09/18 07:23 52 02/09/18 04:00 63 02/09/18 04:00 98.4 60 18 98/58 94 Room Air 98.4 02/09/18 00:00 97.9 63 18 95/57 93 Room Air 97.9 02/09/18 00:00 68 Intake and Output 02/08/18 02/09/18 19:00 07:00 Intake Total 620 ml 300 ml Output Total 225 ml Balance 620 ml 75 ml Intake Oral 620 ml 300 ml Output Urine Total 225 ml # Voids 5 Laboratory Tests Test 02/09/18 07:25 White Blood Count 11.5 K/UL (4.8-10.8) H Red Blood Count 4.88 M/UL (4.70-6.10) Hemoglobin 17.3 G/DL (14.2-18.0) Hematocrit 48.3 % (42.0-52.0) Mean Corpuscular Volume 99 FL (80-99) Mean Corpuscular Hemoglobin 35.4 PG (27.0-31.0) H Mean Corpuscular Hemoglobin Concent 35.8 G/DL (32.0-36.0) Red Cell Distribution Width 12.0 % (11.6-14.8) Platelet Count 140 K/UL (150-450) L Mean Platelet Volume 7.7 FL (6.5-10.1) Neutrophils (%) (Auto) 64.3 % (45.0-75.0) Lymphocytes (%) (Auto) 24.5 % (20.0-45.0) Monocytes (%) (Auto) 9.2 % (1.0-10.0) Eosinophils (%) (Auto) 1.5 % (0.0-3.0) Basophils (%) (Auto) 0.6 % (0.0-2.0) Sodium Level 139 MMOL/L (136-145) Potassium Level 4.8 MMOL/L (3.5-5.1) Chloride Level 103 MMOL/L (98-107) Carbon Dioxide Level 29 MMOL/L (21-32) Anion Gap 7 mmol/L (5-15) Blood Urea Nitrogen 10 mg/dL (7-18) Creatinine 1.0 MG/DL (0.55-1.30) Estimat Glomerular Filtration Rate mL/min (>60) Glucose Level 90 MG/DL (74-106) Calcium Level 9.4 MG/DL (8.5-10.1) Total Bilirubin 1.4 MG/DL (0.2-1.0) H Direct Bilirubin 1.4 MG/DL (0.0-0.3) H Aspartate Amino Transf (AST/SGOT) 24 U/L (15-37) Alanine Aminotransferase (ALT/SGPT) 31 U/L (12-78) Alkaline Phosphatase 58 U/L (46-116) Total Protein 7.7 G/DL (6.4-8.2) Albumin 3.6 G/DL (3.4-5.0) Globulin 4.1 g/dL Albumin/Globulin Ratio 0.9 (1.0-2.7) L Height (Feet): 5 Height (Inches): 10.00 Weight (Pounds): 170 Assessment/Plan Status: stable Assessment/Plan Anxiety d/o cognitive impairment Yasmani Flaherty M.D. February 09, 2018 23:26
--- NOTE | 2018-02-10 14:58 | General Progress Note ---
Assessment/Plan Status: stable, progressing Assessment/Plan Anxiety d/o cognitive impairment ativan prn Subjective Date patient seen: February 09, 2018 Neurologic/Psychiatric: Reports: anxiety, emotional problems Allergies: Coded Allergies: No Known Allergies (Unverified , 02/05/18) Objective Last 24 Hour Vital Signs Date Time Temp Pulse Resp B/P (MAP) Pulse Ox O2 Delivery O2 Flow Rate FiO2 02/09/18 16:00 68 02/09/18 16:00 97.7 64 20 103/69 97 Room Air 97.7 Height (Feet): 5 Height (Inches): 10.00 Weight (Pounds): 170 General Appearance: WD/WN, no apparent distress, alert Yasmani Hernandez M.D. February 10, 2018 14:58
--- NOTE | 2018-02-11 07:55 | Discharge Summary ---
Discharge Summary Discharge Summary Discharge Summary DATE OF ADMISSION: 02/05/2018 DATE OF DISCHARGE: 02/09/2018 REASON FOR ADMISSION: 78 years old male with past medical history significant for hypertension, coronary artery disease, status post [place] and PTCA with stent placement, presented to the emergency room for evaluation. Patient came from chemistry research assistant office with rapid heart rate and associated chest pain. Patient was scheduled for outpatient stress test but prior to stress test developed rapid heart rate. Upon evaluation heart rate was between 140 and 170. EKG revealed atrial fibrillation. Patient also complained of chest pain, pressure-like, nonradiating, 8 out of 10 on a scale 1-10. Patient was given 2 sprays of nitroglycerin and aspirin prior to arrival. Patient reported that chest pain resolved. He denied shortness of breath. Troponin was negative. Laboratory workup was unremarkable, pro BNP- 171. EKG in ED revealed sinus tachycardia. No acute ischemic changes. Patient was admitted to telemetry floor with diagnosis of atrial fibrillation with rapid ventricular response, paroxysmal; chest pain, rule out acute coronary syndrome; history of coronary artery disease , status post PTCA with stent placement,; history of [place], history of CVA, hypertensio.n and history of right kidney surgery CONSULTANTS: chemistry research assistant Dr. Rapp pulmonary Dr. Noriega psychiatrist [facility]: Patient admitted to telemetry floor. Cardiology and pulmonology consults were requested. Serial troponin ordered along with Echo. Patient started on DVT prophylaxis , aspirin and beta parminder. Home medications resumed. Serial troponins were negative. EKG revealed no acute ischemic changes, patient was in sinus rhythm, no acute ischemic change. Patient was ruled out for acute [place]. Dairy Consultant closely followed. Lipid panel revealed LDL 110. Statin was continued. Patient was on aspirin and Plavix (since Brilinta that patient in at home , was not available in the hospital), beta parminder, statin and nitroglycerin. Dose of beta parminder dose was increased per chemistry research assistant , heart rate was controlled. No anticoagulation as per chemistry research assistant given new onset of A. fib and spontaneous conversion to sinus rhythm. Echocardiogram revealed preserved ejection fraction of 60% and right ventricular systolic pressure of 56 consistent with moderate pulmonary hypertension. Supplemental oxygen provided as needed to keep pulse oximetry above 92%. Pulmonary toilet provided as needed. DVT prophylaxis provided. The myocardial perfusion scan demonstrated no significant perfusion defects. Calculated ejection fraction was 60%. Patient was started on Flecainide Dairy Consultant clear patient for discharge with outpatient follow-up with patient home chemistry research assistant. as per chemistry research assistant. Psychiatrist closely followed, and diagnosed patient with anxiety disorder and cognitive impairment. Reality orientation and supportive therapy provided. Anxiolytics provided as needed. Patient was counseled on compliance with medication regimen at home. Patient was educated on low-fat low-cholesterol diet. Patient encouraged to follow-up with the his own chemistry research assistant next week. Patient was stable for discharge home FINAL DIAGNOSES: Atrial fibrillation with rapid ventricular response Chest pain likely secondary to atrial fibrillation with RVR Hypertension Coronary artery disease with a history of PTCI and [place] Hypercholesterolemia Moderate pulmonary hypertension Cerebrovascular disease with history of CVA History of right kidney surgery Anxiety disorder Cognitive impairment DISCHARGE MEDICATIONS: See Medication Reconciliation list. DISCHARGE INSTRUCTIONS: Patient was discharged home. Follow up with the his own chemistry research assistant next week. Follow up with the primary care provider. Janay Shultz NP ([place]) February 11, 2018 07:55
--- NOTE | 2018-02-11 16:33 | Cardiology Report ---
APPROVED REPORT EKG Measurement Heart [id number] Sinus tachycardia Otherwise normal ECG
== END 2018-02-09 18:10 | disposition home or self-care (01) | DRG 201 ==
LOC: EDBD 16:12 → EMR 18:11 → 2E 18:56 → EDBEDREQ 19:11 → OBSVTOIN 19:49
DX: I48.91 Unspecified atrial fibrillation (principal); I27.20 Pulmonary hypertension, unspecified; I10 Essential (primary) hypertension; R10.9 Unspecified abdominal pain; I25.10 Atherosclerotic heart disease of native coronary artery without angina pectoris; Z95.5 Presence of coronary angioplasty implant and graft; I25.2 Old myocardial infarction; F41.9 Anxiety disorder, unspecified; G31.84 Mild cognitive impairment of uncertain or unknown etiology; Z79.02 Long term (current) use of antithrombotics/antiplatelets; Z86.73 Personal history of transient ischemic attack (TIA), and cerebral infarction without residual deficits
CPT/HCPCS: 36415; 71045; 78452; 80048; 80053; 80061; 82248; 82550; 82553; 83880; 84443; 84484; 85025; 85610; 85730; 86140; 90732; 93005; 93017; 93306; 99285; J2785